=== PATIENT | male | born 1960 | race Caucasian/White ===

== ENCOUNTER → 2017-10-19 | Outpatient (CLI) | payer OTHER ==
[~2017-10-19] MED LIST: CPR500; GLC500; HYZ/10015; PROM25TA; TAZTIA; ZFRODT4 SL
[2017-10-19 09:35] LABS: BASO % 1.3 %; BASO ABS # 0.06 K/uL (0-0.2); EOS % 2.6 %; EOS ABS # 0.12 K/uL (0-0.5); HEMATOCRIT 43.3 % (42-52); HEMOGLOBIN 15.4 g/dL (14.0-18.0); IG# 0.04 K/uL (0.00-0.02); LYMPH % 38.3 %; LYMPH ABS # 1.78 K/uL (1.2-3.4); MEAN CELL VOLUME 80.9 fL (80-100); MEAN CORPUSCULAR HEMOGLOBIN 28.8 pg (25-34); MEAN CORPUSCULAR HGB CONC 35.6 g/dl (32-36); MEAN PLATELET VOLUME 9.4 fL (7.4-10.4); MONO ABS # 0.42 K/uL (0.11-0.59); NEUT % 47.9 %; NEUT ABS # 2.23 K/uL (1.4-6.5); PLATELET COUNT 190 K/uL (130-400); RED CELL DISTRIBUTION WIDTH CV 13.7 % (11.5-14.5); RED CELL DISTRIBUTION WIDTH SD 40.1 fL (36.4-46.3); WHITE BLOOD COUNT 4.65 K/uL (4.8-10.8)
[2017-10-19 09:56] LABS: ALBUMIN 4.2 gm/dl (3.4-5.0); ALT/SGPT 77 U/L (12-78); AST/SGOT 54 U/L (15-37); BLOOD UREA NITROGEN 14 mg/dl (7-18); CALCIUM 9.4 mg/dl (8.5-10.1); CARBON DIOXIDE 26 mmol/L (21-32); CREATININE 0.96 mg/dl (0.60-1.40); GLUCOSE 202 mg/dl (70-99); POTASSIUM 3.8 mmol/L (3.5-5.1); SODIUM 136 mmol/L (136-145)
[2017-10-19 10:07] LABS: ALKALINE PHOSPHATASE 63 U/L (45-117); CHOLESTEROL 180 mg/dl (0-200); LDL CHOLESTEROL CALCULATED 71 mg/dl; TOTAL PROTEIN 7.8 gm/dl (6.4-8.2)
[2017-10-19 10:31] LABS: HEMOGLOBIN A1C 8.1 % (4.5-5.6)
== END | disposition home or self-care (01) ==
LOC: C.LAB1850 07:19
PROVIDERS: ATTEND Internal Medicine Pulmonary Disease
DX: E11.9 Type 2 diabetes mellitus without complications (principal); E78.5 Hyperlipidemia, unspecified; N52.9 Male erectile dysfunction, unspecified; I10 Essential (primary) hypertension

== ENCOUNTER 2019-01-19 15:59 | Inpatient (IN) ==
[2019-01-19] MEDS ORDERED: MAGNESIUM HYDROXIDE SUSP 30 ML UDC PO PRN (16:13)
[2019-01-19] MEDS ORDERED: ACETAMINOPHEN 325 MG TAB PO PRN (16:13)
[2019-01-19] MEDS ORDERED: ONDANSETRON INJ 2 MG/ML 2 ML VIAL IV PRN (16:13)
--- NOTE | 2019-01-19 16:22 | History & Physical Report ---
Date of Service January 19, 2019 Assessment & Plan (1) Chest pain: Concerning for atypical angina Trops x2 at 0.043 -> 0.038, will trend given ongoing sx EKG noted for nonspecific T wave abn, monitor CXR on 01/18 neg for acute, will hold on repeat VSS and O2 sats WNL making PE less likely, will hold on imaging for this at this time Cards c/s pending Stress test in AM if trops continue to be stable (2) HTN (hypertension): continue home meds (3) Type 2 diabetes mellitus: continue home meds SSI PRN A1c 09/2018 8.1, repeat pending (4) Hyperlipidemia: continue home meds Lipids pending (5) DVT prophylaxis: SCDs (6) Pain in scapula: History of Present Illness Primary Care Provider: Ry Rodriguez MD 58 y/o M c/o chest pain. Pt was seen in the ED yesterday for chest pain and noted to have a trop of 0.043 and a nonspecific T wave abn noted on EKG. He was advised to stay for admission, however he declined. He had a repeat trop that was stable at 0.038 and repeat EKG that was the same as prior. He was d/c'd under the premise of close outpt f/u with PCP and a stress test. He was seen by his PCP's office today with ongoing chest pain. Belkys Olsen discussed the case with Dr. Wen who felt the pt's sx were c/w unstable angina and concerning. They attempted to get a stress test scheduled, however next available date was 02/15, so it was determined that pt should be a direct admit given ongoing chest pain. Pt has chest pain with brisk walking on his way to work. He walks up a slight incline. He states it will start about 5 minutes into the 10-15 minute walk. It will resolve with rest and he is able to resume his walking. He does take a few "gasping breaths" when this happens, but no nael SOB. This pain is substernal and does not radiate. This pattern started 5-6 days ago. Pt states that he has had less intense versions of this pain that would "come and go" quickly without requiring him to stop activity "on and off for years". He has never had any sort of cardiac work-up. This never happens at rest or with other activity at work. He also notes that about 3 days ago he started having pain to his R scapular area. 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 Pt denies fever, abd pain, n/v/c/d, LE pain or swelling. Allergies Allergy/AdvReac Type Severity Reaction Status Date / Time codeine Allergy Mild Itchiness Verified 01/18/19 15:49 Penicillins Allergy Unknown Unknown Verified 01/18/19 15:49 Home Medications Home Medications Medication Instructions Recorded Confirmed Type aspirin 81 mg PO QPM 12/24/18 01/18/19 History glipizide 10 mg PO BID 12/24/18 01/18/19 History insulin degludec [Tresiba 50 units SUBCUT QPM 12/24/18 01/18/19 History FlexTouch U-200] losartan-hydrochlorothiazide 1 tab PO QAM 12/24/18 01/18/19 History metformin 1,000 mg PO BID 12/24/18 01/18/19 History multivitamin 1 tab PO DAILY 12/24/18 01/18/19 History pravastatin 10 mg PO QPM 12/24/18 01/18/19 History verapamil 120 mg PO QPM 01/18/19 01/18/19 History Past Med/Surg History Medical History HTN (hypertension) Type 2 diabetes mellitus No pertinent family history Surgical History No pertinent past surgical history Family History Mother Stroke Father Stroke Other No pertinent family history Social History Preferred Language: Sri Lankan Communication Ability: Effective Visual Impairment: No Limitations Hearing Ability: Normal Feels Safe at Home: Yes Smoking Status: Never smoker Hx Alcohol Use: No Hx Substance Use: No Review of Systems Review of Systems: Pertinent positives and negatives reviewed in HPI--all others negative Physical Exam Constitutional: WD/WN, vitals as above Eyes: normal visual mccollum by confrontation and + anicteric sclerae Neck: normal visual inspection and trachea midline Respiratory: normal respiratory effort, lungs clear to auscultation Cardiovascular: Rate/Rhythm: regular rate and regular rhythm Gastrointestinal (Abdomen): Inspection/Auscultation: abdomen not distended Percussion/Palpation: abdomen soft; abdomen nontender Musculoskeletal: Head/Neck/Chest: normocephalic and head atraumatic negative for edema, peripheral pulses intact R scapula TTP Skin: no rashes, warm and dry Neurologic: awake; not confused Speech / Cognition: normal speech Psychiatric: A+Ox3, euthymic affect Results & Data Diagnostic Findings CXR: neg for acute on 01/18 ECG Additional Comments: nonspecific T wave abn seen prior Code Status & VTE Plan Code Status Full code, although pt states no prolonged mechanical life support, feeding tubes, etc. is present and agrees. VTE Prophylaxis Plan VTE Prophylaxis will be ordered: Yes (1) Chest pain Chest pain type: unspecified Qualified Code(s): R07.9 - Chest pain, unspecified
[2019-01-19] MEDS ORDERED: DEXTROSE 50% 50 ML SYRINGE IV PRN (16:40)
[2019-01-19] MEDS ORDERED: GLUCOSE 40% GEL 15 GM TUBE PO PRN (16:40)
[2019-01-19] MEDS ORDERED: GLUCOSE 10 TABS/TUBE PO PRN (16:40)
[2019-01-19] MEDS ORDERED: GLUCAGON FOR INJ 1 MG VIAL SQ PRN (16:40)
[2019-01-19] MEDS ORDERED: CARBOHYDRATES FOR HYPOGLYCEMIA PO PRN (16:40)
[2019-01-19 17:18] LABS: BUN Creatinine Ratio 14.8 (10-20); Calcium 9.8 mg/dl (8.5-10.1); Creatinine Clr Calc Pharmacy 93.1 ml/min; Est GFR (Non-African American) 75.1
[2019-01-19 17:35] LABS: Basophils # (auto) 0.04 K/uL (0-0.2); Basophils % (auto) 0.6 %; Eosinophils # (auto) 0.12 K/uL (0-0.5); Eosinophils % (auto) 1.7 %; Hematocrit (blood only) 44.7 % (42-52); Hemoglobin 16.1 g/dL (14.0-18.0); Immature Granulocytes # (auto) 0.05 K/uL (0.00-0.02); Immature Granulocytes % (auto) 0.7 %; Lymphocytes # (auto) 1.81 K/uL (1.2-3.4); Lymphocytes % (auto) 26.2 %; Mean Corpuscular Volume 81.4 fL (80-100); Mean Platelet Volume 9.9 fL (7.4-10.4); Monocytes # (auto) 0.46 K/uL (0.11-0.59); Monocytes % (auto) 6.6 %; Neutrophils # (auto) 4.44 K/uL (1.4-6.5); Neutrophils % (auto) 64.2 %; Platelet Count 260 K/uL (130-400); RDW Coefficient of Variation 13.6 % (11.5-14.5); RDW Standard Deviation 40.4 fL (36.4-46.3); Red Blood Count 5.49 M/uL (4.7-6.1); White Blood Count 6.92 K/uL (4.8-10.8)
[2019-01-19 17:36] LABS: Troponin I 0.019 ng/ml (0-0.045)
[2019-01-19 17:58] LABS: RBC Morphology Unremarkable
[2019-01-19 18:11] LABS: Potassium 4.2 mmol/L (3.5-5.1)
[2019-01-19 18:12] LABS: Magnesium 1.9 mg/dl (1.8-2.4)
--- NOTE | 2019-01-19 19:10 | Cardiology Consultation ---
Date of Consultation January 19, 2019 Assessment & Plan (1) Chest pain: The patient's symptoms are certainly concerning for angina. The exertional nature and the resolution with rest in the setting of his demographic and risk factors makes angina a likely diagnosis. There has been no objective finding of ischemia. Biomarkers have been normal and his electrocardiogram is nondiagnostic. It would seem reasonable to perform provocative testing such as exercise echocardiography. Whether this can be done tomorrow is unclear given some scheduling issues. One could argue that angiography is warranted given his risk factors and symptoms. However, I think it is important to find some objective indication of ischemia prior to recommending an invasive test with some risks. At this point would seem reasonable to continue on his aspirin and his outpatient antihypertensive regimen. In the past he appears to have had some intolerance to more potent statins and is currently on low-dose pravastatin. He has not had any myocardial infarction or see known to have reduced LV systolic function. Those be indications for use of beta-blockade. I think we can administer him a dose of Lovenox tonight over concerns of an unstable coronary process. (2) Sinus tachycardia: The etiology of the sinus tachycardia is unclear. He appears to be quite comfortable currently. I suppose this could suggest an element of reduced LV function although he appears to have clear lungs and no evidence of pulmonary edema on chest x-ray. He will obtain an echocardiogram tomorrow. History of Present Illness Reason for Consultation: Chest pain Requesting Physician: Boy Attending Physician: Chloe Brunson DO History of Present Illness The patient is a 58-year-old gentleman without a known history of cardiac disease who suffers from diabetes mellitus and hypertension. Over the past few days he has been experiencing episodes of exertional chest discomfort. He describes this as a heaviness or tightness in his chest this seems to occur primarily when he is walking briskly from his work to his car. This involves approximately 10 minute walk. He is accustomed to exercising during this time in attempting to walk briskly. In the past this is not produced any significant symptoms. However, over the past few days he has this chest tightness and some associated dyspnea. He generally stops and within 1 minutes the symptoms resolved. He states with some other forms of exertional have similar symptoms. He has not had any prolonged episodes. He has not had any episodes at rest. He has occasional other twinges of discomfort at times. These are fairly fleeting in nature and not associated with exertion. Additionally he also has some shooting pains in his back that appear to be positional in nature. In general he is an active individual who is not accustomed the symptoms associated with exertion. He states that occasionally he will as sending a hill or perform more moderate activity and have an element of dyspnea. This generally resolves as he continues the activity. In the past he has had what he feels is exertional asthma that felt similar. He has not report dizziness or lightheadedness. He has not been aware of any palpitations. He does not have orthopnea or paroxysmal nocturnal dyspnea. He has not suffered syncope. He has not noticed any swelling of lower extremities. He presented to the emergency room last evening with the symptoms and was advised to stay overnight for evaluation. However, he chose to go home. He presented to an outpatient clinic today and based on his symptoms and referral with 1 of our cardiologists he was advised to be admitted for additional testing. Currently he is feeling well without symptoms. Allergies Allergy/AdvReac Type Severity Reaction Status Date / Time codeine Allergy Mild Itchiness Verified 01/18/19 15:49 Penicillins Allergy Unknown Unknown Verified 01/18/19 15:49 Home Medications Home Medications Medication Instructions Recorded Confirmed Type aspirin 81 mg PO QPM 12/24/18 01/18/19 History glipizide 10 mg PO BID 12/24/18 01/18/19 History insulin degludec [Tresiba 50 units SUBCUT QPM 12/24/18 01/18/19 History FlexTouch U-200] losartan-hydrochlorothiazide 1 tab PO QAM 12/24/18 01/18/19 History metformin 1,000 mg PO BID 12/24/18 01/18/19 History multivitamin 1 tab PO DAILY 12/24/18 01/18/19 History pravastatin 10 mg PO QPM 12/24/18 01/18/19 History verapamil 120 mg PO QPM 01/18/19 01/18/19 History Patient History Medical History HTN (hypertension) Type 2 diabetes mellitus No pertinent family history Surgical History No pertinent past surgical history Family History Mother Stroke Father Stroke Other No pertinent family history Social History Preferred Language: Haitian Communication Ability: Effective Visual Impairment: No Limitations Hearing Ability: Normal Beliefs That Will Affect Care: None Current Living Situation: Spouse Other Information That Helps Us Care for You: No Feels Safe at Home: Yes Safety Concerns: Feels Safe At This Time Smoking Status: Never smoker Hx Alcohol Use: No Hx Substance Use: No Review of Systems Review of Systems: All systems reviewed & are unremarkable except as noted in HPI & below No recent constitutional symptoms such as fevers or chills. He does have some nasal congestion in the morning generally. He has not had difficulty with eating or swallowing. Appetite has been good. No notable lower extremity edema. Physical Exam Physical Exam: The patient is alert and oriented. Mood and affect appeared normal. He answered all questions appropriately. Obese HEENT: Pupils are equal and reactive to light and accommodation. Extraocular movements are intact. The sclerae are anicteric. Neuro: Cranial nerves intact Neck: Patient's neck is fat. He has palpable carotid pulses bilaterally without bruits on auscultation. There is no evidence of jugular venous distention. The thyroid is not enlarged. Lungs: Clear to auscultation bilaterally. He has good air movement without use of accessory muscles. No rales wheezes or rhonchi. Cardiac: Heart demonstrates a regular rhythm. He was slightly tachycardic. Normal S1 and S2. No murmurs on examination. Pulses: The patient has palpable radial pulses bilaterally that are equal in intensity Extremities: There was no evidence of hypoperfusion. There is no cyanosis or clubbing. There is no edema. Skin: I did not appreciate any rashes on examination today. Results & Data Vital Signs (Past 12 Hours) Vital Signs Temp Pulse Resp BP Pulse Ox 01/19/19 16:46 36.7 C 110 H 18 139/102 H 95 Laboratory Results Abnormal Lab Results 01/19/19 01/19/19 01/19/19 16:27 16:27 17:30 WBC 6.92 RBC 5.49 Hgb 16.1 Hct 44.7 MCV 81.4 MCH 29.3 MCHC 36.0 RDW Std Deviation 40.4 RDW Coeff of Nena 13.6 Plt Count 260 MPV 9.9 Immature Gran % (Auto) 0.7 Neut % (Auto) 64.2 Lymph % (Auto) 26.2 [place] % (Auto) 6.6 Eos % (Auto) 1.7 Baso % (Auto) 0.6 Immature Gran # (Auto) 0.05 H Neut # (Auto) 4.44 Lymph # (Auto) 1.81 [place] # (Auto) 0.46 Eos # (Auto) 0.12 Baso # (Auto) 0.04 RBC Morphology Unremarkable Sodium 138 Potassium 4.2 Chloride 107 Carbon Dioxide 20 L Anion Gap 11.0 BUN 16 Creatinine 1.07 Est Cr Clr Drug Dosing 93.1 Est GFR ( Amer) 87.0 Est GFR (Non-Af Amer) 75.1 BUN/Creatinine Ratio 14.8 Glucose 179 H Calcium 9.8 Phosphorus 4.0 Magnesium 1.9 Troponin I 0.019 TSH 2.670 Diagnostic Findings Chest x-ray obtained emergency room did not reveal any acute cardiopulmonary disease ECG Additional Comments: Normal sinus rhythm nonspecific ST and T-wave changes (1) Chest pain Chest pain type: unspecified Qualified Code(s): R07.9 - Chest pain, unspecified
[2019-01-19] MEDS ORDERED: ENOXAPARIN 1 MG/KG SQ ONE (19:17)
[2019-01-19 20:07] LABS: Partial Thromboplastin Ratio 0.9; Partial Thromboplastin Time 25.5 Seconds (21.0-31.0); Prothrombin Time 10.6 Seconds (9.0-12.0)
[2019-01-19] MEDS: INSULIN ASPART 100 UNITS/ML 3 ML PEN SC SCH (20:32)
[2019-01-19] MEDS ORDERED: PRAVASTATIN SOD 10 MG TAB PO SCH (21:00)
[2019-01-19] MEDS ORDERED: INSULIN GLARGINE SOLOSTAR 100 UNITS/ML 3 ML PEN SQ SCH (21:00)
[2019-01-19] MEDS ORDERED: ASPIRIN 81 MG ECTAB PO SCH (21:00)
[2019-01-19] MEDS ORDERED: VERAPAMIL HCL 120 MG TABCR PO SCH (21:00)
[2019-01-19] MEDS: ENOXAPARIN INJ 120 MG/0.8 ML SYR SQ SCH (21:34)
[2019-01-20 05:11] LABS: Troponin I 0.029 ng/ml (0-0.045)
[2019-01-20] MEDS ORDERED: glipiZIDE 5 MG TAB PO SCH (07:30)
[2019-01-20] MEDS ORDERED: METFORMIN HCL 500 MG TAB PO SCH (08:00)
[2019-01-20] MEDS: INSULIN ASPART 100 UNITS/ML 3 ML PEN SC SCH ×3 (08:18→12:43)
[2019-01-20 08:43] LABS: Estimated Average Glucose 154 mg/dl
[2019-01-20] MEDS: ENOXAPARIN INJ 120 MG/0.8 ML SYR SQ SCH (08:59)
[2019-01-20] MEDS ORDERED: LOSARTAN/HCTZ 50/12.5MG TAB PO SCH (09:00)
[2019-01-20] MEDS ORDERED: MULTIVITAMIN TAB PO SCH (09:00)
--- NOTE | 2019-01-20 17:34 | Cardiology Progress Note ---
Date of Service January 20, 2019 Assessment & Plan (1) HOWE (dyspnea on exertion): Likely this is an anginal equivalent given his stress echocardiogram findings. Recommended proceeding on to elective cardiac catheterization later this week. In the meantime, he can be discharged home and return to work, but should avoid any physical exertion. Recommended increasing his verapamil from 120 mg daily to 120 mg b.i.d. and giving him a prescription for p.r.n. sublingual nitroglycerin. If he has any exertional symptoms which do not promptly respond to rest or nitroglycerin, any symptoms of dyspnea or chest pain at rest, for any new unusual symptoms, he will report to the emergency department. Case discussed with Dr. Osborn. (2) Hyperlipidemia: (3) Type 2 diabetes mellitus: (4) HTN (hypertension): Increased verapamil. (5) Sinus tachycardia: Increase verapamil. Subjective Patient had uneventful night and ruled out for ongoing myocardial ischemia with stable ECG and negative troponins. He proceeded on to stress echocardiogram, exercising for just over 3 minutes on a Octavio protocol before developing dyspnea but no chest pain. Baseline ECG showed minor inferior ST depression which was exaggerated during exercise. He did have a mildly hypertensive blood pressure response. Resting echo showed low-normal systolic function with no regional wall motion a bnormalities. Post exercise, he had transient distal septal and apical septal hypokinesis which resolved in less than a minute. The patient was comfortable after his stress echo. No symptoms. He was interested in returning home. Review of Systems Cardiovascular: as per Subjective / HPI Physical Exam Physical Exam: No distress. Appears comfortable Skin: No unusual lesions or ecchymosis. HEENT: Unremarkable. Neck: Jugular venous pulse at the clavicle at 90, no carotid bruits. Lungs: Clear and equal breath sounds bilaterally. No wheezing or crackles. Cardiac: Regular rhythm with normal S1 and S2. No murmur or gallop. Abdomen: Benign. Extremities: Nontender without edema. Intact peripheral pulses. Neurologic: Normal affect, nonfocal Results & Data Vital Signs (Past 12 Hours) Vital Signs Temp Pulse Pulse Pulse Resp BP BP 01/20/19 16:40 36.7 C 84 110 H 18 135/90 124/82 01/20/19 15:24 36.7 C 110 H 18 135/90 01/20/19 11:16 36.5 C 104 H 18 127/94 01/20/19 08:00 97 H 01/20/19 07:35 36.5 C 93 H 16 145/95 H Pulse Ox 01/20/19 16:40 96 01/20/19 15:24 96 01/20/19 11:16 96 01/20/19 08:00 01/20/19 07:35 95
[2019-01-20] MEDS ORDERED: INSULIN GLARGINE SOLOSTAR 100 UNITS/ML 3 ML PEN SQ SCH (21:00)
--- NOTE | 2019-01-29 05:36 | Discharge Summary ---
Date of Service date of admission - January 19, 2019 date of discharge - January 20, 2019 Admission HPI Per Admitting Provider 58 y/o male with history of T2DM, HTN, and hyperlipidemia who presented c/o chest pain. Pt was seen in the ED yesterday for chest pain and noted to have a trop of 0.043 and a nonspecific T wave abnormality noted on EKG. He was advised to stay for admission; however, he declined. He had a repeat trop that was stable at 0.038 and repeat EKG that was the same as prior. He was d/c'd under the premise of close outpt f/u with PCP and a stress test. He was seen by his PCP's office today with ongoing chest pain. Belkys Olsen discussed the case with Dr. Wen who felt the pt's sx were c/w unstable angina and concerning. They attempted to get a stress test scheduled, however next available date was 02/15, so it was determined that pt should be a direct admit given ongoing chest pain. Pt has chest pain with brisk walking on his way to work. He walks up a slight incline. He states it will start about 5 minutes into the 10-15 minute walk. It will resolve with rest and he is able to resume his walking. He does take a few "gasping breaths" when this happens, but no nael SOB. This pain is substernal and does not radiate. This pattern started 5-6 days ago. Pt states that he has had less intense versions of this pain that would "come and go" quickly without requiring him to stop activity "on and off for years". He has never had any sort of cardiac work-up. This never happens at rest or with other activity at work. He also notes that about 3 days ago he started having pain to his R scapular area. 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 Pt denies fever, abd pain, nausea, emesis, diarrhea, LE pain or swelling. Principal Diagnosis chest pain with positive stress test Discharge Exam Constitutional well developed, well nourished and + obese; no acute distress ENMT external ear and nose normal, oropharynx normal Respiratory normal respiratory effort, lungs clear to auscultation Cardiovascular RRR, no murmur, no edema Heart Sounds: normal S1 and normal S2 Vessels: posterior tibial pulses present and dorsalis pedis pulses present; no JVD Chest (Breasts) Additional Comments: no reproducible chest wall pain Gastrointestinal (Abdomen) normal bowel sounds, soft, nontender, no hepatosplenomegaly Psychiatric A+Ox3, euthymic affect Discharge Data Allergies Allergy/AdvReac Type Severity Reaction Status Date / Time codeine Allergy Mild Itchiness Verified 01/25/19 04:21 Penicillins Allergy Unknown Unknown Verified 01/25/19 04:21 Consultations cardiology - John Caldera MD Procedures Performed exercise stress echocardiogram - * inducible wall motion abnormality - mid & distal septum became hypokinetic immediately post-exercise * patient with dyspnea during the study * normal LV function Hospital Course (1) Chest pain: The patient's symptoms were concerning for angina. However his troponins technically remained normal while hospitalized. Telemetry was normal while here. Chest x-ray was normal. His chest pain symptoms did not recur during the stay. He was seen in consult by cardiology who performed an exercise stress ech ocardiogram. This indeed showed inducible wall motion abnormalities in the mid & distal septal region. Specifically the septum became severely hypokinetic post-exercise. Due to the timing of his stay the patient would have had to wait 3+ days for a cardiac catheterization. Thus, after extensive counseling, he was allowed to discharge home on LIGHT DUTY/LIGHT ACTIVITIES only. No strenuous activities. He was given nitroglycerin to use on PRN basis. Cardiology planned to arrange an outpatient cardiac catheterization within 3-5 days. Additional recommendations - 1. INCREASE verapamil to 120mg BID. 2. INCREASE PRAVASTATIN to 20mg every day. 3. Again SL nitro on a PRN basis with very specific instructions that if it had to be used he should seek medical attention right away. 4. CONTINUE ASPIRIN. (2) HTN (hypertension): continue home meds. verapamil increased to 120mg BID as recommended by cardiology. (3) Type 2 diabetes mellitus: continue home meds. hemoglobin A1c was 7%. (4) Hyperlipidemia: Triglycerdies were nearly 400. LDL was 68. HDL was 36. Recommendations - 1. INCREASE pravastatin to 20mg daily. 2. CONSIDER PRESCRIPTION FISH OIL OR FIBRATE THERAPY. 3. Adopt Mediterranean diet. This was discussed in detail with patient & his . Total Time Total Time Spent Total Time Spent (In Minutes): 40 Total Time Includes: Examination of the Patient, Discharge Planning, Medication Reconciliation and Communication With Other Providers Discharge Plan Discharge Items Patient Disposition: Home - Self-Care Reason For Visit: chest pain Discharge Diagnosis: Chest pain -- high concern that it is from the heart. However, no evidence of heart attack over the last few days. Abnormal stress test -- in need of heart catheterization. Discharge Goals: Diagnostic testing and Therapeutic intervention Activity: As commented below Activity Comment: no strenuous activities; no yard work, environmental field team member, etc. Lifting: No more than 10 pounds Bathing: No limitations Sexual Activity: Wait until after follow-up appointment Exercise/Sports: None and Wait until after follow-up appointment Driving/Machine Use: No limitations Driving/Machine Use Comment: ok to drive, but do not operate heavy machinery Non-emergency contact: Primary Care Provider Call non-emergency contact if: you have any medication questions, your symptoms worsen, your pain is not controlled and your pain is worsening Follow-up/Referrals: John Caldera MD [Physician] - (please call Dr. Caldera's office THIS TUESDAY to coordinate date/time of heart catheterization.) Ry Rodriguez MD [Primary Care Provider] - (please see Dr Rodriguez within 1 week) Diet: Carb Consistent or DM2 and Heart Healthy Addtl Provider Instructions: From Jose Osborn - hospitalist- You were admitted due to episodes of chest pain/discomfort. Your blood work for the heart was negative for heart attack. Chest x-ray of the lungs was normal. Lipid panel (cholesterol) showed high triglycerides and low HDL (HDL is "good cholesterol" -- we like to see this high). Your telemetry heart monitoring was normal. Stress test was completed and was abnormal. It appears that a portion of the heart muscle may not be getting enough oxygen and nutrients. This suggests possible blocked coronary arteries. You will need a heart catheterization as soon as possible to determine if there are blocked arteries and, if so, how badly blocked. Recommendations - 1. INCREASE your pravastatin to 20mg daily. 2. INCREASE your verapamil to 120mg twice a day. 3. Eat a diet rich in fish, olive oil, etc ("mediterranean diet"). This is good for your overall health, weight reduction, and for your triglycerides / HDL. 4. Keep the bottle of nitroglycerin tablets with you at all times. If you experience chest pain or shortness of breath please take a nitroglycerin. If your symptoms require you to take more than 1 tablet please seek medical attention right away. 5. Light activity until your heart catheterization. NO HEAVY EXERTIONAL ACTIVITIES, SEXUAL INTERCOURSE, ETC. Light walks are fine. Follow-up -- call the [facility] office first thing Tuesday to schedule your heart catheterization. Return to [facility] if -- * you have recurrent chest pain that worsens, does not respond/resolve with nitroglycerin, etc. * you have worsening shortness of breath * you have jaw pain, arm pain, neck pain, nausea, vomiting, or sweatiness * any other concerns Prescriptions: New nitroglycerin 0.4 mg tablet, sublingual 0.4 mg sublingual Q5M PRN (Reason: chest pain) Qty: 1 RF: 0 Continued glipizide 5 mg tablet 10 mg PO BID RF: 0 multivitamin Tablet 1 tab PO DAILY RF: 0 aspirin 81 mg Tablet,Delayed Release (Dr/Ec) 81 mg PO QPM RF: 0 metformin 1,000 mg tablet 1,000 mg PO BID RF: 0 Tresiba FlexTouch U-200 200 unit/mL (3 mL) insulin pen 50 units subcut QPM RF: 0 Changed verapamil 120 mg capsule,ext rel. pellets 24 hr 120 mg PO BID Qty: 60 RF: 2 Discontinued pravastatin 10 mg tablet 10 mg PO QPM RF: 0 No Action atorvastatin 40 mg Tablet 40 mg PO QAM 30 Days Qty: 30 RF: 3 losartan-hydrochlorothiazide 50-12.5 mg Tablet 1 tab PO QAM 30 Days Qty: 30 RF: 2 metoprolol tartrate 25 mg Tablet 25 mg PO QAM 30 Days Qty: 30 RF: 3 Brilinta 90 mg Tablet 90 mg PO BID 30 Days Qty: 60 RF: 3 Stand-Alone Forms: My [facility] Discharge Orders: Discharge Order (Routine); Ordered 01/20/19 Ordered By: Jose Osborn Admission Data Admit Date/Time: 01/19/19 16:03 Attending Provider: Jose Osborn Admit Provider: Chloe Brunson Primary Care Provider: Ry Rodriguez Other Providers: Manan Noriega Service: Telemetry Other Interventions: Discharge Summary Assessment (RN) Last Done: 01/20/19 16:40 Pending Studies at Discharge: No DC Date/Time DO NOT enter until pt leaves facility: 01/20/19 17:14
== END 2019-01-20 17:14 | disposition home or self-care (01) | DRG 313 ==
LOC: 2E 16:03 → SUATTDRO 16:03
DX: Z88.0 Allergy status to penicillin; M25.511 Pain in right shoulder; Z88.5 Allergy status to narcotic agent; R94.39 Abnormal result of other cardiovascular function study; Z79.899 Other long term (current) drug therapy; Z79.82 Long term (current) use of aspirin; R00.0 Tachycardia, unspecified; R07.9 Chest pain, unspecified; E78.5 Hyperlipidemia, unspecified; I10 Essential (primary) hypertension; R06.00 Dyspnea, unspecified; R94.31 Abnormal electrocardiogram [ECG] [EKG]; E11.9 Type 2 diabetes mellitus without complications

== ENCOUNTER 2019-01-25 01:28 | Inpatient (IN) ==
[2019-01-25] MEDS ORDERED: NITROGLYCERIN 2% OINTMENT 30GM TUBE EXT ONE (01:36)
[2019-01-25] MEDS ORDERED: SODIUM CHLORIDE 0.9% 1000ML 1,000 ML IV SCH ×2 (01:45→05:17)
[2019-01-25 01:53] LABS: Basophils # (auto) 0.05 K/uL (0-0.2); Basophils % (auto) 0.8 %; Eosinophils # (auto) 0.22 K/uL (0-0.5); Eosinophils % (auto) 3.7 %; Hematocrit (blood only) 41.2 % (42-52); Hemoglobin 14.9 g/dL (14.0-18.0); Immature Granulocytes # (auto) 0.04 K/uL (0.00-0.02); Immature Granulocytes % (auto) 0.7 %; Lymphocytes # (auto) 2.13 K/uL (1.2-3.4); Mean Corpuscular Hgb Conc 36.2 g/dL (32-36); Mean Corpuscular Volume 81.9 fL (80-100); Mean Platelet Volume 9.5 fL (7.4-10.4); Monocytes # (auto) 0.38 K/uL (0.11-0.59); Monocytes % (auto) 6.4 %; Neutrophils % (auto) 52.4 %; Platelet Count 179 K/uL (130-400); RDW Coefficient of Variation 13.6 % (11.5-14.5); RDW Standard Deviation 40.5 fL (36.4-46.3); Red Blood Count 5.03 M/uL (4.7-6.1); White Blood Count 5.92 K/uL (4.8-10.8)
[2019-01-25] MEDS ORDERED: NITROGLYCERIN SL 0.4 MG/TAB TAB ONE (02:46)
[2019-01-25] MEDS ORDERED: MAGNESIUM SULFATE 1GM / D5W BAG IV ONE (02:50)
[2019-01-25] MEDS ORDERED: POTASSIUM CHLORIDE 10 MEQ TABCR PO ONE (02:51)
[2019-01-25] MEDS ORDERED: METOPROLOL TARTRATE 50 MG TAB ONE (02:52)
[2019-01-25] MEDS ORDERED: LORazepam 0.5 MG TAB ONE (03:00)
[2019-01-25] MEDS ORDERED: HEPARIN 25000 UNIT/500 ML D5W IV ONE (03:04)
[2019-01-25] MEDS ORDERED: HEPARIN SOD 5,000 UNIT/0.5 ML VIAL ONE (03:04)
[2019-01-25 03:44] LABS: Albumin Level 3.8 gm/dl (3.4-5.0); Calcium 8.7 mg/dl (8.5-10.1); Creatinine Clr Calc Pharmacy 92.5 ml/min; Est GFR (African American) 84.1; Est GFR (Non-African American) 72.6; Magnesium 1.8 mg/dl (1.8-2.4); Potassium 3.8 mmol/L (3.5-5.1)
[2019-01-25 03:51] LABS: Albumin Globulin Ratio 1.1 (0.9-2); Bilirubin,Total 0.8 mg/dl (0.2-1); Creatine Kinase MB 1.6 ng/ml (0.5-3.6); Globulin 3.4 gm/dl (2.5-4.0); Partial Thromboplastin Ratio 0.9; Partial Thromboplastin Time 24.5 Seconds (21.0-31.0); Prothrombin Time 10.6 Seconds (9.0-12.0); Total Protein 7.2 gm/dl (6.4-8.2); Troponin I 0.06 ng/ml (0-0.045)
[2019-01-25] MEDS ORDERED: Heparin Adult STANDARD Wt-Based Dextrose 5% 25,000 units/500 mL IV SCH (04:00)
[2019-01-25 04:09] LABS: T4 Free Thyroxine 1.02 ng/dl (0.8-1.6)
--- NOTE | 2019-01-25 04:39 | History & Physical Report ---
Date of Service January 25, 2019 Assessment & Plan (1) Chest pain: 58-year-old male with past medical history hypertension, hyperlipidemia, type 2 diabetes presents with acute chest pain. Patient was admitted last week for unstable angina and was scheduled for heart catheterization this Tuesday. Admission occurred during [facility] downtime, written orders provided. Unstable angina EKG revealed ST depressions in lateral leads with chest pain, initial troponin was 0.06, stable vital signs At home, the pain was relieved with sublingual nitro, but the patient had repeat chest pain in the ED Prior to transfer to the floor, heparin drip with bolus, aspirin, Nitropaste, sublingual nitro, metoprolol titrate 25 mg and oxygen were given Admit to telemetry, nitro for chest pain, EKG with chest pain, cardiology consult Hypertension Continue losartan/HCTZ Continue verapamil Starting metoprolol titrate 25 mg p.o. daily Hyperlipidemia Starting Lipitor 40 mg. Previously on pravastatin. Type 2 diabetes Hold glipizide, hold metformin Starting sliding scale insulin DVT prophylaxis Heparin CODE STATUS Full (2) HTN (hypertension): (3) HOWE (dyspnea on exertion): (4) Sinus tachycardia: (5) Hyperlipidemia: (6) Type 2 diabetes mellitus: History of Present Illness Primary Care Provider: Ry Rodriguez MD 58-year-old male with a history of diabetes, hypertension, hyperlipidemia presents after waking up in the middle the night with acute chest pain. He described the chest pain is substernal tightness with associated shortness of breath. The patient took sublingual nitro which relieved the pain, but shortly after he began to have the pain again so he decided to come into the emergency room. Patient was admitted last week for unstable angina and had received a stress echo with a plan for a heart catheterization this Tuesday. Allergies Allergy/AdvReac Type Severity Reaction Status Date / Time codeine Allergy Mild Itchiness Verified 01/25/19 04:21 Penicillins Allergy Unknown Unknown Verified 01/25/19 04:21 Home Medications Home Medications Medication Instructions Recorded Confirmed Type Tresiba FlexTouch U-200 50 units SUBCUT QPM 12/24/18 01/25/19 History aspirin 81 mg PO QPM 12/24/18 01/25/19 History glipizide 10 mg PO BID 12/24/18 01/25/19 History metformin 1,000 mg PO BID 12/24/18 01/25/19 History multivitamin 1 tab PO DAILY 12/24/18 01/25/19 History nitroglycerin 0.4 mg SUBLINGUAL Q5M PRN #1 btl 01/20/19 01/25/19 Rx verapamil 120 mg PO BID #60 cap 01/20/19 01/25/19 Rx atorvastatin 40 mg PO QAM 30 Days #30 tab 01/26/19 Rx losartan-hydrochlorothiazide 1 tab PO QAM 30 Days #30 tab 01/26/19 Rx metoprolol tartrate 25 mg PO QAM 30 Days #30 tab 01/26/19 Rx ticagrelor [Brilinta] 90 mg PO BID 30 Days #60 tab 01/26/19 Rx Past Med/Surg History Medical History HTN (hypertension) Type 2 diabetes mellitus No pertinent family history Surgical History No pertinent past surgical history Social History Preferred Language: Divehi Communication Ability: Effective Visual Impairment: No Limitations Hearing Ability: Normal Beliefs That Will Affect Care: None marital status: Unknown Current Living Situation: Spouse Other Information That Helps Us Care for You: No Feels Safe at Home: Yes Safety Concerns: Feels Safe At This Time Smoking Status: Never smoker Hx Alcohol Use: No Hx Substance Use: No Review of Systems Review of Systems: All systems reviewed & are unremarkable except as noted in HPI & below Physical Exam Constitutional: WD/WN, vitals as above Eyes: PERRL, conjunctivae normal, anicteric sclerae ENMT: external ear and nose normal, oropharynx normal Neck: trachea midline, no thyromegaly Respiratory: normal respiratory effort, lungs clear to auscultation Cardiovascular: RRR, no murmur, no edema Gastrointestinal (Abdomen): normal bowel sounds, soft, nontender, no hepatosplenomegaly Musculoskeletal: no cyanosis or clubbing, extremities motor strength 5/5 Skin: no rashes, warm and dry Neurologic: PERRL, EOMI, accommodation nl, no face palsy, no dysarthria Psychiatric: A+Ox3, euthymic affect Results & Data Vital Signs (Past 12 Hours) Vital Signs Temp Pulse Pulse Resp BP BP Pulse Ox 01/25/19 01:41 95 H 18 152/91 H 97 01/25/19 01:30 36.9 C 102 H 16 166/92 H 94 Code Status & VTE Plan Code Status Full code VTE Prophylaxis Plan VTE Prophylaxis will be ordered: Yes Supervising Physician Co-Signing Physician Notes Attending addendum: I have physically seen this patient, have supervised the medical residents activities, and agree with the H&P unless as otherwise noted. Assessment and Plan: Unstable angina/hypertension/abnormal EKG- The patient will be admitted to telemetry for serial cardiac enzymes, serial EKG's, cardiac rhythm monitoring and a 2-D echocardiogram with Dopplers. Heparin drip, aspirin, Nitropaste and metoprolol tartrate as noted. Continue losartan/HCTZ. Hyperlipidemia- Change to high-dose statin protocol. Change pravastatin to Lipitor 40 mg daily. Diabetes mellitus- Hold glipizide and metformin. Placed on Accu-Cheks before meals and at bedtime with NovoLog coverage per scale. Remaining orders and notations as noted. Resident Activity Tracking Resident Involvement: Resident Care Provided Care Provided: Adult Hospital Medicine (1) Chest pain Chest pain type: unspecified Qualified Code(s): R07.9 - Chest pain, unspec ified
[2019-01-25] MEDS ORDERED: NITROGLYCERIN SL 0.4 MG/TAB TAB SL PRN ×2 (05:17)
--- NOTE | 2019-01-25 05:41 | Emergency Department Note ---
History of Present Illness General Chief complaint: Chest Pain Stated complaint: CHEST PAIN Time Seen by Provider: 01/25/19 01:34 History of Present Illness Maximum Pain Intensity: 3 This is a 58-year-old male presenting to the emergency department for chest pain that began less than 1 hour prior to arrival. The patient was recently evaluated at this facility for chest pain roughly 1 week ago, and was found to have anginal symptoms. The patient is scheduled for outpatient cardiac ca theterization tomorrow, however tonight he began having chest pain while at rest in his bed. He did take 2 nitroglycerin which did improve his symptoms. He does take aspirin, and has taken 324 mg. The patient does not have lightheadedness or dizziness. His chest pain is central and heavy. It does not radiate. The patient rates his current discomfort a 2/10. He does have significant risk factors of dyslipidemia and diabetes. The patient was seen during a [facility] downtime. Additional information may be scanned into the EMR. Home Medications Home Medications Medication Instructions Recorded Confirmed Type Tresiba FlexTouch U-200 50 units SUBCUT QPM 12/24/18 01/25/19 History aspirin 81 mg PO QPM 12/24/18 01/25/19 History glipizide 10 mg PO BID 12/24/18 01/25/19 History losartan-hydrochlorothiazide 1 tab PO QAM 12/24/18 01/25/19 History metformin 1,000 mg PO BID 12/24/18 01/25/19 History multivitamin 1 tab PO DAILY 12/24/18 01/25/19 History nitroglycerin 0.4 mg SUBLINGUAL Q5M PRN #1 btl 01/20/19 01/25/19 Rx pravastatin 20 mg PO DAILY #30 tab 01/20/19 01/25/19 Rx verapamil 120 mg PO BID #60 cap 01/20/19 01/25/19 Rx Allergies Allergy/AdvReac Type Severity Reaction Status Date / Time codeine Allergy Mild Itchiness Verified 01/25/19 04:21 Penicillins Allergy Unknown Unknown Verified 01/25/19 04:21 Past Med/Surg History Medical History HTN (hypertension) Type 2 diabetes mellitus No pertinent family history Surgical History No pertinent past surgical history Social History Preferred Language: Polish Communication Ability: Effective Visual Impairment: No Limitations Hearing Ability: Normal Beliefs That Will Affect Care: None Current Living Situation: Spouse Other Information That Helps Us Care for You: No Feels Safe at Home: Yes Safety Concerns: Feels Safe At This Time Smoking Status: Never smoker Hx Alcohol Use: No Hx Substance Use: No Review of Systems A total of 10 systems reviewed and were otherwise negative Physical Exam Vital Signs Vital Signs - 24 hr 01/25/19 01:30 01/25/19 01:41 01/25/19 04:20 Temperature 36.9 C 36.6 C Temperature Source Oral Oral Sepsis Recent Fever Within 48 Hours No Sepsis New/Unexplained Change in Mental Status No Sepsis Action Taken by Nursing No Action Required Pulse Rate 102 H Pulse Rate [Right Finger] 95 H 101 H Respiratory Rate 16 18 18 Respiratory Effort / Characteristics Non-Labored Spontaneous Respiratory Depth Normal Normal Respiratory Pattern Regular Blood Pressure 166/92 H Blood Pressure [Right Arm] 152/91 H 129/76 Blood Pressure Mean 116 Blood Pressure Mean [Right Arm] 111 93 Blood Pressure Position [Right Arm] Lying Pulse Oximetry 94 97 92 Oxygen Delivery Method Room Air Room Air Room Air VITALS: Vitals are noted on the nurse's note and reviewed by myself. Vital signs stable. GENERAL: Well-developed, well-nourished, white male who appears mildly uncomfortable but overall cooperative. HEAD: Normocephalic atraumatic. EARS: External ear normal. External auditory canals clear, tympanic membranes pearly tapia without erythema or effusion bilaterally. EYES: Pupils equal round and reactive to light and accommodation. Conjunctivae without injection, sclerae without icterus. Extraocular movements intact. NOSE: Patent, turbinates without inflammation or discharge. MOUTH: Mucous membranes moist. Tonsils are not enlarged. Pharynx without erythema, blood, or exudate. Uvula midline. Airway patent. NECK: Supple without nuchal rigidity. No lymphadenopathy. No thyromegaly. Cervical spine is nontender. HEART: Regular rate and rhythm without murmurs gallops or rubs. LUNGS: Clear to auscultation bilaterally without wheezes, rales or rhonchi. No retractions or accessory muscle use. ABDOMEN: Positive normal bowel sounds x 4. Soft, nontender, without masses or organomegaly. No guarding or rebound tenderness. MUSCULOSKELETAL: No muscle atrophy, erythema, or edema noted. Full range of motion in all extremities. NEURO: Patient was alert and oriented to person place and time. CN II through XII grossly intact. SKIN: The skin was without rashes, erythema, edema, or bruising. Capillary refill less than 2 seconds. Course Administered Medications Aspirin (Ecotrin Ectab) 81 mg PO QPM [facility] Stop: 02/24/19 20:59 Last Admin: 01/25/19 22:10 Dose: 81 mg Documented by: [id number] Atorvastatin Calcium (Lipitor) 40 mg PO QAM [facility] Stop: 02/24/19 08:59 Last Admin: 01/25/19 09:01 Dose: 40 mg Documented by: [id number] HCTZ/Losartan Potassium (Hyzaar 50/12.5mg) 1 tab PO QAM [facility] Stop: 02/24/19 08:59 Last Admin: 01/25/19 09:01 Dose: 1 tab Documented by: [id number] Insulin Aspart (Novolog Flexpen) 0 units SC ACHS [facility] Stop: 02/24/19 07:29 Last Admin: 01/25/19 22:10 Dose: 1 units Documented by: [id number] Cosigned by: [id number] Admin: 01/25/19 17:15 Dose: 3 units Documented by: [id number] Cosigned by: [id number] Admin: 01/25/19 14:04 Dose: Not Given Documented by: [id number] Cosigned by: [id number] Admin: 01/25/19 09:02 Dose: 1 units Documented by: [id number] Cosigned by: [id number] Insulin Glargine (Lantus Solostar Pen) 50 units SQ QPM [facility]; Protocol Stop: 02/24/19 20:59 Last Admin: 01/25/19 22:11 Dose: 50 units Documented by: [id number] Cosigned by: [id number] Ticagrelor (Brilinta) 90 mg PO BID [facility] Stop: 02/24/19 20:59 Last Admin: 01/25/19 22:10 Dose: 90 mg Documented by: [id number] Verapamil HCl (Calan Sr) 120 mg PO BID [facility] Stop: 02/24/19 08:59 Last Admin: 01/25/19 22:10 Dose: 120 mg Documented by: [id number] Admin: 01/25/19 09:01 Dose: 120 mg Documented by: [id number] Discontinued Medications Fentanyl Citrate (Fentanyl Citrate) Confirm Administered Dose 100 mcg .ROUTE .STK-MED ONE Stop: 01/25/19 10:21 Last Increment: 01/25/19 13:00 Dose: 50 mcg Documented by: [id number] Heparin Sodium (Porcine) (Heparin Sodium (Porcine)) Confirm Administered Dose 5,000 units .ROUTE .STK-MED ONE Stop: 01/25/19 03:05 Last Admin: 01/25/19 05:28 Dose: Not Given Documented by: [id number] Heparin Sodium (Porcine) (Heparin Iv Bolus (Room Service Associate Use Only)) Confirm Administered Dose 10,000 units .ROUTE .STK-MED ONE Stop: 01/25/19 10:21 Last Admin: 01/25/19 13:00 Dose: 10,000 units Documented by: [id number] Heparin Sodium (Porcine) (Heparin Iv Bolus (Room Service Associate Use Only)) Confirm Administered Dose 10,000 units .ROUTE .STK-MED ONE Stop: 01/25/19 13:02 Last Admin: 01/25/19 13:03 Dose: 6,000 units Documented by: [id number] Heparin Sodium/Dextrose (Heparin Sodium/Dextrose) Confirm Administered Dose 25,000 units IV .STK-MED ONE Stop: 01/25/19 03:05 Last Admin: 01/25/19 05:29 Dose: Not Given Documented by: [id number] Heparin Sodium/Sodium Chloride (Heparin/Nss 1000 Unit/500ml Flush Bag) Confirm Administered Dose 3,000 units IV .STK-MED ONE Stop: 01/25/19 10:22 Last Admin: 01/25/19 10:51 Dose: 3,000 units Documented by: [id number] Sodium Chloride (Nss 1000ml) 1,000 mls @ 999 mls/hr IV .Q1H1M [facility] Stop: 01/25/19 02:45 Last Infusion: 01/25/19 05:32 Dose: 0 mls/hr Documented by: [id number] Admin: 01/25/19 01:45 Dose: 999 mls/hr Documented by: [id number] Heparin Sodium/Dextrose (Heparin Sodium/Dextrose) 25,000 units in 500 mls @ 33 mls/hr IV .[id number] LONNY; Protocol Stop: 02/24/19 03:59 Last Titration: 01/25/19 13:59 Dose: 0 units/hr, 0 mls/hr Documented by: [id number] Cosigned by: [id number] Titration: 01/25/19 07:06 Dose: 1,650 units/hr, 33 mls/hr Documented by: [id number] Cosigned by: [id number] Admin: 01/25/19 06:08 Dose: 1,650 units/hr, 33 mls/hr Documented by: [id number] Cosigned by: [id number] Sodium Chloride (Nss 1000ml) 1,000 mls @ 100 mls/hr IV .Q10H LONNY Stop: 01/25/19 15:16 Last Infusion: 01/25/19 15:50 Dose: 0 mls/hr Documented by: [id number] Admin: 01/25/19 05:50 Dose: 100 mls/hr Documented by: [id number] Lorazepam (Ativan) 0.5 mg in 1 mls @ 1 mls/min IV NOW STA Stop: 01/25/19 22:21 Last Admin: 01/25/19 22:45 Dose: 1 mls/min Documented by: [id number] Lorazepam (Ativan) Confirm Administered Dose 0.5 mg .ROUTE .STK-MED ONE Stop: 01/25/19 03:01 Last Admin: 01/25/19 05:28 Dose: Not Given Documented by: [id number] Magnesium Sulfate/Dextrose (Magnesium Sulfate / D5w) Confirm Administered Dose 1 gm IV .STK-MED ONE Stop: 01/25/19 02:51 Last Admin: 01/25/19 05:27 Dose: Not Given Documented by: [id number] Metoprolol Tartrate (Lopressor) Confirm Administered Dose 50 mg .ROUTE .STK-MED ONE Stop: 01/25/19 02:53 Last Admin: 01/25/19 05:27 Dose: Not Given Documented by: [id number] Midazolam HCl (Versed) Confirm Administered Dose 2 mg .ROUTE .STK-MED ONE Stop: 01/25/19 10:21 Last Admin: 01/25/19 13:00 Dose: 2 mg Documented by: [id number] Nicardipine HCl (Cardene) Confirm Administered Dose 25 mg .ROUTE .STK-MED ONE Stop: 01/25/19 10:22 Last Admin: 01/25/19 10:51 Dose: 25 mg Documented by: [id number] Nitroglycerin (Nitro-Bid 2%) 1 inch EXT NOW ONE Stop: 01/25/19 01:37 Last Admin: 01/25/19 01:47 Dose: 1 inch Documented by: [id number] Nitroglycerin (Nitrostat) Confirm Administered Dose 0.4 mg .ROUTE .STK-MED ONE Stop: 01/25/19 02:47 Last Admin: 01/25/19 05:27 Dose: Not Given Documented by: [id number] Nitroglycerin/Dextrose (Nitroglycerin/D5w 100 Mcg/Ml 20ml Syringe) Confirm Administered Dose 2,000 mcg .ROUTE .STK-MED ONE Stop: 01/25/19 10:22 Last Admin: 01/25/19 10:51 Dose: 2,000 mcg Documented by: [id number] Potassium Chloride (Klor-Con M10) Confirm Administered Dose 40 meq PO .STK-MED ONE Stop: 01/25/19 02:52 Last Admin: 01/25/19 05:27 Dose: Not Given Documented by: [id number] Ticagrelor (Brilinta) Confirm Administered Dose 180 mg PO .STDestinationRX-MED ONE Stop: 01/25/19 12:59 Last Admin: 01/25/19 13:00 Dose: 180 mg Documented by: [id number] Medical Decision Making Differential Diagnosis Differential diagnosis includes, but is not limited to: Myocardial infarction, dysrhythmia, pericarditis, pneumothorax, aortic aneurysm/dissection, DVT/PE, anxiety, GERD, PUD, electrolyte imbalance, thyroid disorder, pneumonia, bronchitis, pancreatitis, and others Laboratory Data Result diagrams: 01/25/19 01:44 01/25/19 01:44 Lab Results 01/25/19 01/25/19 01/25/19 Range/Units 01:44 01:44 01:44 WBC 5.92 (4.8-10.8) K/uL RBC 5.03 (4.7-6.1) M/uL Hgb 14.9 (14.0-18.0) g/dL Hct 41.2 L (42-52) % MCV 81.9 (80-100) fL MCH 29.6 (25-34) pg MCHC 36.2 H (32-36) g/dL RDW Std Deviation 40.5 (36.4-46.3) fL RDW Coeff of Nena 13.6 (11.5-14.5) % Plt Count 179 (130-400) K/uL MPV 9.5 (7.4-10.4) fL Immature Gran % (Auto) 0.7 % Neut % (Auto) 52.4 % Lymph % (Auto) 36.0 % Throckmorton % (Auto) 6.4 % Eos % (Auto) 3.7 % Baso % (Auto) 0.8 % Immature Gran # (Auto) 0.04 H (0.00-0.02) K/uL Neut # (Auto) 3.10 (1.4-6.5) K/uL Lymph # (Auto) 2.13 (1.2-3.4) K/uL Throckmorton # (Auto) 0.38 (0.11-0.59) K/uL Eos # (Auto) 0.22 (0-0.5) K/uL Baso # (Auto) 0.05 (0-0.2) K/uL PT 10.6 (9.0-12.0) Seconds INR 1.0 (0.9-1.1) APTT 24.5 (21.0-31.0) Seconds PTT Ratio 0.9 Sodium 140 (136-145) mmol/L Potassium 3.8 (3.5-5.1) mmol/L Chloride 108 H (98-107) mmol/L Carbon Dioxide 22 (21-32) mmol/L Anion Gap 10.0 (3-11) BUN 15 (7-18) mg/dl Creatinine 1.10 (0.6-1.4) mg/dl Est Cr Clr Drug Dosing 92.5 ml/min Est GFR ( Amer) 84.1 Est GFR (Non-Af Amer) 72.6 BUN/Creatinine Ratio 14.0 (10-20) Glucose 210 H (70-99) mg/dl Calcium 8.7 (8.5-10.1) mg/dl Magnesium 1.8 (1.8-2.4) mg/dl Total Bilirubin 0.8 (0.2-1) mg/dl AST 35 (15-37) U/L ALT 61 (12-78) U/L Alkaline Phosphatase 68 (45-117) U/L Total Creatine Kinase 121 (39-308) U/L CK-MB (CK-2) 1.6 (0.5-3.6) ng/ml CK/CKMB % Calc 1.3 (0-3.0) Troponin I 0.060 H* (0-0.045) ng/ml Total Protein 7.2 (6.4-8.2) gm/dl Albumin 3.8 (3.4-5.0) gm/dl Globulin 3.4 (2.5-4.0) gm/dl Albumin/Globulin Ratio 1.1 (0.9-2) Lipase 1312 H (73-393) U/L TSH 5.220 H (0.300-4.500) uIu/ml Free T4 1.02 (0.8-1.6) ng/dl Imaging Data Radiologist's Impression: XR chest 1V portable CLINICAL HISTORY: Chest pain. COMPARISON STUDY: Chest radiograph January 18, 2019. FINDINGS: Lung volumes are normal. There is no pneumothorax or pleural effusion. No consolidation is present. Mild interstitial thickening has developed. Cardiomediastinal silhouette is stable. IMPRESSION: Interval development of subtle interstitial prominence which may reflect pulmonary vascular congestion. An infectious process could appear similar although is considered less likely. MDM Narrative Physical exam and history were performed. Nursing notes, EMR, and Medication List were personally reviewed. Patient appears to have central chest pain that has been relieved with nitroglycerin. The patient was here in the hospital earlier this week, and has a highly concerning history of unstable angina. Initial EKG was performed during a [facility] downtime, and was concerning as the patient had ST depression in the anterior leads as well as T wave inversion in the inferior leads. IV access was established and labs were obtained. The patient was placed on the athletic monitor. Nitropaste was applied. The case was discussed with my attending physician, Dr. Murphy, who remained involved in care and decision- making. The patient blood work is as above and was reviewed. He does not have a significantly elevated white blood cell count, gross anemia, or significant electrolyte imbalance. His troponin is slightly elevated at 0.060. The patient had additional EKG changes while here in the department, and appeared to have worsening depression. The case was discussed with the on-call hospitalist, Dr. Stephenson, who remained closely involved in patient care. Overall the patient's symptoms are concerning for unstable angina/NSTEMI. Please see Dr. Stephenson's dictation for further patient course and disposition. The chart was completed utilizing [employer] Voice Recognition Software. Grammatical errors, random word insertions, pronoun errors, and incomplete sentences are an occasional consequence of this system due to software limitations, ambient noise, and hardware issues. Any formal questions or concerns about the content, text, or information contained within the body of this dictation should be directly addressed to the provider for clarification. . Impression & Plan Unstable angina Discharge Plan Visit Data *Final* Discharge Date/Time: 01/25/19 04:45 Chief Complaint: Chest Pain Stated Complaint: CHEST PAIN ED Provider: Chevy Murphy ED Midlevel Provider: Herbert Jones Discharge Problem: Unstable angina Patient Disposition: Admitted As Inpatient
[2019-01-25] MEDS ORDERED: GLUCAGON FOR INJ 1 MG VIAL SQ PRN (05:45)
[2019-01-25] MEDS ORDERED: DEXTROSE 50% 50 ML SYRINGE IV PRN (05:45)
[2019-01-25] MEDS ORDERED: CARBOHYDRATES FOR HYPOGLYCEMIA PO PRN (05:45)
[2019-01-25] MEDS ORDERED: GLUCOSE 10 TABS/TUBE PO PRN (05:45)
[2019-01-25] MEDS ORDERED: GLUCOSE 40% GEL 15 GM TUBE PO PRN (05:45)
[2019-01-25 06:33] LABS: Appearance Urine Clear (Clear); Bilirubin Urine Negative (Negative); Blood Urine Negative (Negative); Color Urine Yellow; Glucose Urine UA 3+ (Negative); Ketones Urine 1+ (Negative); Leukocyte Esterase Urine Negative (Negative); Nitrite Urine Negative (Negative); Protein Urine Negative (Negative); Specific Gravity Urine 1.021 (1.000-1.030); Urobilinogen Urine Negative (Negative)
--- NOTE | 2019-01-25 07:11 | XRay Report ---
XR chest 1V portable CLINICAL HISTORY: Chest pain. COMPARISON STUDY: Chest radiograph January 18, 2019. FINDINGS: Lung volumes are normal. There is no pneumothorax or pleural effusion. No consolidation is present. Mild interstitial thickening has developed. Cardiomediastinal silhouette is stable. IMPRESSION: Interval development of subtle interstitial prominence which may reflect pulmonary vascu lar congestion. An infectious process could appear similar although is considered less likely. Electronically signed by: Devon Ellison M.D. 01/25/2019 7:10 AM
--- NOTE | 2019-01-25 08:28 | Pre Anesthesia Assessment ---
Date of Service January 25, 2019 Pre Sedation Assessment Vital Signs Temp Pulse Pulse Resp BP BP Pulse Ox 01/25/19 07:08 36.7 C 88 18 117/74 95 01/25/19 04:20 36.6 C 101 H 18 129/76 92 01/25/19 01:41 95 H 18 152/91 H 97 01/25/19 01:30 36.9 C 102 H 16 166/92 H 94 Cardiovascular + regular rate Respiratory + respiratory effort normal Pre-Sedation Airway Assessment Smoking Status: Never smoker Hx Sleep Apnea: No Hx Difficult Intubation: No Short, Thick Neck: No Thyromental Distance: > or= 3.5 Finger Breadths Oral Cavity: + WNL Mallampati Class: III ASA: ASA3 Procedure Planning Contraindications for Sedation: none Current Medications Reviewed: Yes Notes The planned sedation has been discussed with the patient. Informed Consent was obtained. I have identified the patient, determined the appropriateness of sedation and have assessed the patient immediately prior to the procedure. All medicine(s) and interventions are by my order.
[2019-01-25] MEDS: VERAPAMIL HCL 120 MG TABCR PO SCH ×2 (09:01→22:10)
[2019-01-25] MEDS: ATORVASTATIN 40 MG TAB PO SCH (09:01)
[2019-01-25] MEDS: LOSARTAN/HCTZ 50/12.5MG TAB PO SCH (09:01)
[2019-01-25] MEDS: INSULIN ASPART 100 UNITS/ML 3 ML PEN SC SCH ×4 (09:02→22:10)
[2019-01-25] MEDS ORDERED: MIDAZOLAM HCL 1 MG/ML 2ML VIAL ONE (10:20)
[2019-01-25] MEDS ORDERED: fentaNYL citrate 100 MCG/2 ML VIAL ONE (10:20)
[2019-01-25] MEDS ORDERED: HEPARIN (PORCINE) 1000 UNIT/ML 10 ML (CATH LAB USE ONLY) ONE ×2 (10:20→13:01)
[2019-01-25] MEDS ORDERED: NiCARDipine HCL INJ 2.5 MG/ML 10 ML AMP ONE (10:21)
[2019-01-25] MEDS ORDERED: NITROGLYCERIN/D5W 100MCG/ML 20ML SYR ONE (10:21)
[2019-01-25 10:38] LABS: Partial Thromboplastin Ratio 1.6; Partial Thromboplastin Time 43.9 Seconds (21.0-31.0)
--- NOTE | 2019-01-25 10:42 | History & Physical Bridge Note ---
Date of Service January 25, 2019 History & Physical Bridge Note I have examined the patient, reviewed the History & Physical and in the interval since the performance of the History & Physical I have noted the following changes of clinical significance: Patient returned this morning with recurrent sx at rest.
--- NOTE | 2019-01-25 11:16 | Cardiac Catheterization ---
Cardiac Cath Procedure: Brief Procedure Date January 25, 2019 Pre-Procedure Diagnosis Pre-Procedure Diagnosis: Acute Coronary Syndrome and Positive Stress Test AUC Score AUC Score: 8 Post-Procedure Diagnosis Post-Procedure Diagnosis: Severe CAD Procedure(s) Performed Procedure(s) Performed: Coronary Angiography and Left Heart Cath Manager Reimbursement Isaiah Noriega MD Estimated Blood Loss Estimated Blood Loss: 10cc Medication(s) Medication(s): Fentanyl, Heparin, Nicardipine, Nitroglycerin and Versed Preliminary Findings Severe proximal LAD disease. Non-obstructive (mild) disease in an otherwise normal (right dominant) system. Normal LV pressures. Recommendations Recommendations: PCI without planned CABG Procedural Complication(s) None Disposition PCU
--- NOTE | 2019-01-25 11:48 | Cardiology Progress Note ---
Date of Service January 25, 2019 Assessment & Plan (1) Unstable angina: The patient's prior symptoms were consistent with an element of unstable angina given the relatively recent onset. He was felt to have significant coronary disease but the time of discharge this was purely exertional. Due to the recurrent nature of his symptoms and the symptoms which occurred at rest, this seems to be a more unstable process and he was admitted for more accelerated evaluation. Currently he is pain-free. He is a very minor elevation in his cardiac biomarkers. EKG is nonspecific. I would recommend continuation of heparin and aspirin. My intention is to perform coronary angiography today. I did describe the risks benefits and alternatives to coronary angiography with the patient and his . The therapy recommended will depend on the results and could include either medical therapy, percut aneous intervention or even surgical revascularization. Subjective The patient is a 58-year-old gentleman known to me from a recent admission for symptoms of exertional chest pain. During the patient's recent hospitalization he did undergo exercise treadmill testing with echocardiography. The test was terminated at a relatively short timeframe due to some minor EKG changes, the development of dyspnea and some echocardiographic findings suggestive of distal septal ischemia. Patient was sent home on an antianginal regimen and asked to refrain from severe activity. He was scheduled for an outpatient angiogram initially to be performed tomorrow. Patient states that over the past few days he has had occasional episodes of chest discomfort associated with some fairly mild exertion. These resolved quite quickly. However, last evening he awoke from sleep with symptoms of chest discomfort. Chest pain was characteristic of his prior angina. He did take some nitroglycerin with improvement but not relief. Due to the nature of the symptoms he [facility] he underwent a heparin infusion and additional application of nitroglycerin. This resolved his symptoms. Review of Systems Review of Systems: All systems reviewed & are unremarkable except as noted in HPI & below No other recent symptoms. Some dyspnea with chest pain. No dizziness or sense of palpitation. No syncope. Physical Exam Physical Exam: The patient is alert and oriented. Mood and affect appeared normal. He answered all questions appropriately. Obese HEENT: Pupils are equal and reactive to light and accommodation. Extraocular movements are intact. The sclerae are anicteric. Neuro: Cranial nerves intact Neck: Patient's neck is supple. He has palpable carotid pulses bilaterally without bruits on auscultation. There is no evidence of jugular venous distention. The thyroid is not enlarged. Lungs: Clear to auscultation bilaterally. He has good air movement without use of accessory muscles. No rales wheezes or rhonchi. Cardiac: Heart demonstrates a regular rate and rhythm. Normal S1 and S2. No murmurs on examination. Pulses: The patient has palpable radial pulses bilaterally that are equal in intensity Extremities: There was no evidence of hypoperfusion. There is no cyanosis or clubbing. There is no edema. Skin: I did not appreciate any rashes on examination today. Results & Data Vital Signs (Past 12 Hours) Vital Signs Temp Pulse Pulse Resp BP BP Pulse Ox 01/25/19 07:08 36.7 C 88 18 117/74 95 01/25/19 04:20 36.6 C 101 H 18 129/76 92 01/25/19 01:41 95 H 18 152/91 H 97 01/25/19 01:30 36.9 C 102 H 16 166/92 H 94 Laboratory Results Abnormal Lab Results 01/25/19 01/25/19 01/25/19 01:44 01:44 01:44 WBC 5.92 RBC 5.03 Hgb 14.9 Hct 41.2 L MCV 81.9 MCH 29.6 MCHC 36.2 H RDW Std Deviation 40.5 RDW Coeff of Nena 13.6 Plt Count 179 MPV 9.5 Immature Gran % (Auto) 0.7 Neut % (Auto) 52.4 Lymph % (Auto) 36.0 Kerr % (Auto) 6.4 Eos % (Auto) 3.7 Baso % (Auto) 0.8 Immature Gran # (Auto) 0.04 H Neut # (Auto) 3.10 Lymph # (Auto) 2.13 Kerr # (Auto) 0.38 Eos # (Auto) 0.22 Baso # (Auto) 0.05 PT 10.6 INR 1.0 APTT 24.5 PTT Ratio 0.9 Sodium 140 Potassium 3.8 Chloride 108 H Carbon Dioxide 22 Anion Gap 10.0 BUN 15 Creatinine 1.10 Est Cr Clr Drug Dosing 92.5 Est GFR ( Amer) 84.1 Est GFR (Non-Af Amer) 72.6 BUN/Creatinine Ratio 14.0 Glucose 210 H POC Glucose Calcium 8.7 Magnesium 1.8 Total Bilirubin 0.8 AST 35 ALT 61 Alkaline Phosphatase 68 Total Creatine Kinase 121 CK-MB (CK-2) 1.6 CK/CKMB % Calc 1.3 Troponin I 0.060 H* Total Protein 7.2 Albumin 3.8 Globulin 3.4 Albumin/Globulin Ratio 1.1 Lipase 1312 H TSH 5.220 H Free T4 1.02 Urine Color Urine Appearance Urine pH Ur Specific Sturgeon Urine Protein Urine Glucose (UA) Urine Ketones Urine Blood Urine Nitrite Urine Bilirubin Urine Urobilinogen Ur Leukocyte Esterase 01/25/19 01/25/19 01/25/19 06:15 07:29 10:06 WBC RBC Hgb Hct MCV MCH MCHC RDW Std Deviation RDW Coeff of Nena Plt Count MPV Immature Gran % (Auto) Neut % (Auto) Lymph % (Auto) Kerr % (Auto) Eos % (Auto) Baso % (Auto) Immature Gran # (Auto) Neut # (Auto) Lymph # (Auto) Kerr # (Auto) Eos # (Auto) Baso # (Auto) PT INR APTT 43.9 H PTT Ratio 1.6 Sodium Potassium Chloride Carbon Dioxide Anion Gap BUN Creatinine Est Cr Clr Drug Dosing Est GFR ( Amer) Est GFR (Non-Af Amer) BUN/Creatinine Ratio Glucose POC Glucose 182 H Calcium Magnesium Total Bilirubin AST ALT Alkaline Phosphatase Total Creatine Kinase CK-MB (CK-2) CK/CKMB % Calc Troponin I Total Protein Albumin Globulin Albumin/Globulin Ratio Lipase TSH Free T4 Urine Color Yellow Urine Appearance Clear Urine pH 5.0 Ur Specific Sturgeon 1.021 Urine Protein Negative Urine Glucose (UA) 3+ H Urine Ketones 1+ H Urine Blood Negative Urine Nitrite Negative Urine Bilirubin Negative Urine Urobilinogen Negative Ur Leukocyte Esterase Negative Diagnostic Findings Stress echocardiogram performed on 01/20/2019 revealed evidence of distal and apical septal ischemia. ECG Additional Comments: Nonspecific ST and T wave changes with some minor ST segment depressions diffusely.
--- NOTE | 2019-01-25 11:52 | Cardiac Catheterization ---
Date of Service January 25, 2019 Cardiac Cath Report Cardiac Cath Report Procedure performed: Left heart catheterization, coronary angiography Staff gunner mate: Isaiah Noriega MD Indication: Patient is a 58-year-old gentleman with a history of exertional angina and abnormal stress echocardiogram. He was scheduled for outpatient angiography based on his symptoms and objective findings but had an episode of chest discomfort at rest very early this morning. As such we performed coronary angiography today for unstable angina. Procedure in detail: The patient was informed of the risks benefits and alternatives to the intended procedure, he understood such and wished to proceed. He was taken to the cardiac catheterization suite in a fasting state. Conscious sedation was administered per protocol and the patient was monitored electrocardiographically throughout today's procedure. The right wrist area was prepped and draped in usual sterile fashion. This area was anesthetized using subcutaneous administration of a lidocaine solution. The right radial artery was then accessed using Seldinger technique, and a arterial sheath was placed at this site over a guidewire. The sheath was used to facilitate passage of the cardiac catheter for coronary angiography and left heart catheterization. Coronary angiogram was then obtained in multiple orthogonal views prior to removal of the catheter. At the conclusion of the procedure the sheath was removed and hemostasis was achieved at the access site using manual pressure. The patient tolerated procedure well, there were no immediate complications. Equipment used: 5 Polish [place] 4, 5 Polish angled pigtail Findings: Opening aortic pressure: 108/72 mmHg Closing aortic pressure: 119/72 mmHg Left ventricular pressure: 116/1 mmHg Left ventricular end-diastolic pressure: 10 mmHg Coronary angiography: Left main: Left main coronary artery was relatively long but bifurcated normally into the left anterior descending left circumflex. There is no significant obstructive disease in this vessel Left anterior descending: Left anterior descending was a large transapical vessel. There was significant disease in its proximal portion prior to the takeoff of the first diagonal. This compromise the lumen approximately 70%. There was also ostial disease involving the large first diagonal branch estimated at 70%. The remaining vessel had luminal irregularities and a fairly discrete stenosis in its distal portion estimated at 70%. Left circumflex: Left circumflex was a codominant vessel. Reproduced to large obtuse marginal branches. There are luminal irregularities without discrete stenoses Right coronary artery: The right coronary artery was a codominant vessel. There are luminal irregularities throughout its course without any discrete stenoses Impression: Severe proximal left anterior descending disease also involving the first diagonal branch Codominant coronary system Normal left ventricular end-diastolic pressure Plan: Patient will be referred for immediate percutaneous intervention involving the proximal left anterior descending
[2019-01-25] MEDS ORDERED: TICAGRELOR 90 MG TAB PO ONE (12:58)
--- NOTE | 2019-01-25 13:18 | Post Anesthesia Assessment ---
Date of Service January 25, 2019 Post Sedation Assessment Vital Signs Temp Pulse Pulse Resp BP BP Pulse Ox 01/25/19 07:08 36.7 C 88 18 117/74 95 01/25/19 04:20 36.6 C 101 H 18 129/76 92 01/25/19 01:41 95 H 18 152/91 H 97 01/25/19 01:30 36.9 C 102 H 16 166/92 H 94 Recovery Score Activity: Moves 4 extremities Respiration: Deep Breath/Cough Circulation: +/-20% PreAnes Value Consciousness: Fully Awake Oxygen Saturation: O2 needed for >90% Discharge Sedation Level of Care: Fast Track Phase II Post Sedation Plan On clinical assessment, the patient appears to have tolerated the sedation without complications. Patient is recovering as anticipated. Patient will continue to be monitored by nursing and may be discharged when sedation discharge criteria are met per below protocol. Upon Completions of procedure and additional 15 minutes continue every 5 minute vital signs and the P.A.R. score; then discharge to a Phase I or Fast Track to Phase II per the following guidelines: * Discharge Patient to appropriate Phase II area if PAR is 8 or greater or return to pre- procedure baseline. The post - procedure orders will be as directed. * If PAR score is less than 8 or not return to pre-procedure baseline then patient will follow Phase I monitoring till PAR is reached for Phase II. The Phase I may be done in procedure room or may call to secure a Phase I area. * If naloxone or flumazenil are used for reversal, hold in Phase I for continued monitoring from when last reversal dose was given for a minimum of 60 minutes or longer pending the nurse and/or physician discretion of patient condition before discharge to Phase II. Please call the Sedation Physician to re-evaluate and complete post-note for discharge to Phase II area. Do NOT discharge from procedure sedation or Phase 1 until post- sedation evaluation note is complete by procedure /sedation MD Sedation Discharge Instructions to be given to the patient at discharge to home.
--- NOTE | 2019-01-25 13:27 | Cardiac Catheterization ---
Cardiac Cath Procedure Full Procedure Date January 25, 2019 Pre-Procedure Diagnosis Pre-Procedure Diagnosis: Acute Coronary Syndrome and Positive Stress Test AUC Score AUC Score: 8 Post-Procedure Diagnosis Post-Procedure Diagnosis: Severe CAD and Successful PCI Procedure(s) Performed Procedure(s) Performed: Coronary Angiography, Drug Eluting Stent and IVUS Microbiology Lab Assistant Isaiah Rice MD Glass Ribbon Machine Operator(s) Marlo Estimated Blood Loss Estimated Blood Loss: 20 Medication(s) Medication(s): Fentanyl, Heparin, Nicardipine, Nitroglycerin and Versed Medication(s): Ticagrelor Summary of Findings Severe proximal LAD disease. Non-obstructive (mild) disease in an otherwise normal (right dominant) system. Normal LV pressures. Indication: Abnormal stress test, ACS Access: 6 Fr right radial artery Catheters: EBU 3.5 guide Findings: For full details of patient's coronary angiography please cath report dictated by Dr. Noriega. Briefly, patient found to have severe disease involving proximal LAD and bifurcation with second diagonal. Decision to proceed with PCI. -- PCI -- Antithrombotic therapy: Heparin, ticagrelor Procedure: Left main cannulated with EBU 3.5 guide Rn Circulating 50 wire passed across lesion into second diagonal Pro-water wire passed across LAD lesion into distal LAD IVUS used to assess extent of disease and proximal mid LAD and degree of calcification. Found to have severe stenosis extending from ostium into mid segment with moderate to severe calcification and high degree stenosis extending into diagonal. Proximal to mid LAD lesion predilated with 2.5 compliant balloon Ostium of diagonal dilated with 2.5 balloon 3.0 x 30 mm Mario drug-eluting stent placed from LAD ostium to mid segment across takeoff of diagonal Diagonal rewired with ferryboat pilot 50 wire Ostium of diagonal/stent struts dilated with 1.5 and 2.5 balloon Stent postdilated with 3.5 NC High-grade stenosis persisted in ostium of diagonal decision to place a second stent. Ostium of diagonal stented with 2.75 x 15 mm Mario "kissing balloon" inflation of LAD diagonal with 3.0 balloon in LAD, 2.75 stent balloon in diagonal Repeat IVUS assessment showed underexpanded midportion of LAD stent and ostium of diagonal. Ostium of diagonal dilated with 3.0 balloon LAD stent postdilated with 3.75 NC to high atmospheres IC vasodilators administered for spasm Post procedure MORGAN 3 flow, stent well expanded with minimal residual stenosis and no apparent cardiac complications. Arterial Closure: TR band Summary: 1. Successful PCI of ostial to mid LAD and bifurcating second diagonal with 2 drug-eluting stents (3.0 x 30 mm Grover to LAD postdilated to 3.75, 2.75 x 15 mm Mario in diagonal). Recommendations: To PCU for continued monitoring Loaded with ticagrelor 180 mg in laborer gold leaf Continue dual-antiplatelet therapy for at least one year Continue statin, and ASCVD risk factor modification Consult cardiac Rehab Hemodynamics Rest Ao:: 133/70/94 Final Ao: 124/76/98 LV: -- Recommendations Recommendations: PCI without planned CABG Specimens Specimens: None Radiation Exposure (mGy) 8259 Contrast (mls) 180 Fluids (cc crystalloids) Fluids (cc crystalloids): 225 Drains Drains: none Anesthesia moderate Procedural Complication(s) None Disposition PCU ACC Data: Campground Hand Cardiac Status Clinical evaluation leading to the procedure CAD Presenation: Non STEMI and Positive Stress Test Heart Failure: No Cardiogenic Shock within 24 Hours: No Cardiac Arrest within 24 Hours: No Imaging Studies Past 6 Months: Yes Stress Studies Past 6 Months: Yes Stress Echocardiogram: Yes - Positive and Risk/Extent of Ischemia (High) Diagnostic Physicians Name: Isaiah Rice MD Status: Elective Closure Device Percutaneous Entry Location: Radial Closure Device: Radial Band Recommendations: PCI without planned CABG PCI Indication: + Stress Test and PCI for high risk Non-GRUPO Lesion Segment Name: proximal LAD/second diagonal Culprit Artery: Yes Stenosis Prior to Rx (%): 70-80 Chronic Total Occlusion: No IVUS: Yes FFR: No Pre-Procedure MORGAN Flow: 3 Previously Treated Lesion: No Lesion Length (mm): 28 Thrombus Present: Yes Bifurcation Lesion: Yes Guidewire Across Lesion: Stenosis Post-Procedure (%): 0 Post-Procedure MORGAN Flow: 3 Devices(s) Deployed: Yes Yes Intraprocedure Events Significant Disection: No Perforation: No
--- NOTE | 2019-01-25 14:02 | History & Physical Bridge Note ---
Date of Service January 25, 2019 History & Physical Bridge Note I have examined the patient, reviewed the History & Physical and in the interval since the performance of the History & Physical I have noted the following changes of clinical significance: patient taken to heart catheterization lab diagnostic cath by Dr. Noriega showed 70% stenosis in diagonal branch and mid LAD Dr. Rice placed KATIA to both vessels tolerated well continue DAPT, statin therapy remain on tele and likely d/c to home tomorrow visited patient after cath, feeling well, no chest pain, eating lunch
[2019-01-25] MEDS ORDERED: ASPIRIN 81 MG ECTAB PO SCH (21:00)
[2019-01-25] MEDS ORDERED: INSULIN GLARGINE SOLOSTAR 100 UNITS/ML 3 ML PEN SQ SCH (21:00)
[2019-01-25] MEDS: TICAGRELOR 90 MG TAB PO SCH (22:10)
[2019-01-25] MEDS ORDERED: LORazepam 0.5 MG/1 ML VIAL IV STA (22:20)
[2019-01-26] MEDS: VERAPAMIL HCL 120 MG TABCR PO SCH (08:26)
[2019-01-26] MEDS: LOSARTAN/HCTZ 50/12.5MG TAB PO SCH (08:26)
[2019-01-26] MEDS: TICAGRELOR 90 MG TAB PO SCH (08:26)
[2019-01-26] MEDS: ATORVASTATIN 40 MG TAB PO SCH (08:27)
[2019-01-26] MEDS: INSULIN ASPART 100 UNITS/ML 3 ML PEN SC SCH (08:27)
[2019-01-26 08:35] LABS: BUN Creatinine Ratio 9.9 (10-20); Calcium 9.7 mg/dl (8.5-10.1); Creatinine Clr Calc Pharmacy 98.5 ml/min; Est GFR (Non-African American) 77.7; Potassium 4.2 mmol/L (3.5-5.1)
[2019-01-26] MEDS ORDERED: METOPROLOL TARTRATE 25 MG TAB PO SCH (09:00)
--- NOTE | 2019-01-26 09:23 | Cardiology Progress Note ---
Date of Service January 26, 2019 Assessment & Plan (1) Unstable angina: The patient underwent successful percutaneous intervention involving the proximal LAD yesterday. Is not had any recurrent symptoms. He does have some residual disease in the distal LAD which presents a low risk for significant coronary event but could produce symptoms in some circumstances. We will need to monitor him as an outpatient for any recurrent symptoms of chest discomfort with activity. No evident complication at the access site He will need to go home on dual antiplatelet therapy consisting of aspirin and Brilinta. He was placed on atorvastatin in the hospital but has had some intolerance of this in the past. He could be discharged on pravastatin, possibly 40 mg daily. I will arrange follow-up for him in our clinic within the next couple of weeks. Subjective This morning the patient claims he is feeling well. He denies any discomfort at the right radial access site or any discomfort in his hand. Is been amatory around his room without recurrent symptoms of chest pain or dyspnea. Review of Systems Review of Systems: Per HPI Physical Exam Physical Exam: Right wrist is without hematoma. There is good perfusion of the right hand. He has a palpable radial pulse. Results & Data Vital Signs (Past 12 Hours) Vital Signs Temp Pulse Resp BP BP Pulse Ox 01/26/19 08:00 37 C 84 16 148/87 H 96 01/26/19 03:20 36.7 C 84 18 134/81 99 01/25/19 23:52 36.7 C 102 H 18 129/77 98 Laboratory Results Abnormal Lab Results 01/25/19 01/25/19 01/25/19 10:06 11:13 11:51 APTT 43.9 H PTT Ratio 1.6 Activ Coag Time Kaolin 153 H 197 H Sodium Potassium Chloride Carbon Dioxide Anion Gap BUN Creatinine Est Cr Clr Drug Dosing Est GFR ( Amer) Est GFR (Non-Af Amer) BUN/Creatinine Ratio Glucose POC Glucose Calcium 01/25/19 01/25/19 01/25/19 12:11 12:43 16:23 APTT PTT Ratio Activ Coag Time Kaolin 224 H 252 H Sodium Potassium Chloride Carbon Dioxide Anion Gap BUN Creatinine Est Cr Clr Drug Dosing Est GFR ( Amer) Est GFR (Non-Af Amer) BUN/Creatinine Ratio Glucose POC Glucose 155 H Calcium 01/25/19 01/26/19 01/26/19 20:09 07:33 07:52 APTT PTT Ratio Activ Coag Time Kaolin Sodium 139 Potassium 4.2 Chloride 105 Carbon Dioxide 25 Anion Gap 9.0 BUN 10 D Creatinine 1.04 Est Cr Clr Drug Dosing 98.5 Est GFR ( Amer) 90.0 Est GFR (Non-Af Amer) 77.7 BUN/Creatinine Ratio 9.9 L Glucose 144 H POC Glucose 181 H 156 H Calcium 9.7 Diagnostic Findings Coronary angiography performed yesterday revealed a proximal LAD stenosis also involving the first diagonal. There was a distal stenosis in the LAD as well. No other obstructive disease.
--- NOTE | 2019-01-26 11:53 | Discharge Summary ---
Date of Service January 26, 2019 Admission HPI Per Admitting Provider 58-year-old male with a history of diabetes, hypertension, hyperlipidemia presents after waking up in the middle the night with acute chest pain. He described the chest pain is substernal tightness with associated shortness of breath. The patient took sublingual nitro which relieved the pain, but shortly after he began to have the pain again so he decided to come into the emergency room. Patient was admitted last week for unstable angina and had received a stress echo with a plan for a heart catheterization this Tuesday. Admission Exam Per Admitting Provider Constitutional: WD/WN, vitals as above Eyes: PERRL, conjunctivae normal, anicteric sclerae ENMT: external ear and nose normal, oropharynx normal Neck: trachea midline, no thyromegaly Respiratory: normal respiratory effort, lungs clear to auscultation Cardiovascular: RRR, no murmur, no edema Gastrointestinal (Abdomen): normal bowel sounds, soft, nontender, no hepa tosplenomegaly Musculoskeletal: no cyanosis or clubbing, extremities motor strength 5/5 Skin: no rashes, warm and dry Neurologic: PERRL, EOMI, accommodation nl, no face palsy, no dysarthria Psychiatric: A+Ox3, euthymic affect Principal Diagnosis Unstable angina Discharge Exam Constitutional WD/WN, vitals as above Eyes PERRL, conjunctivae normal, anicteric sclerae ENMT external ear and nose normal, oropharynx normal Neck trachea midline, no thyromegaly Respiratory normal respiratory effort, lungs clear to auscultation Cardiovascular RRR, no murmur, no edema Gastrointestinal (Abdomen) normal bowel sounds, soft, nontender, no hepatosplenomegaly Musculoskeletal no cyanosis or clubbing, extremities motor strength 5/5 Skin no rashes, warm and dry Neurologic patellar DTR's 2+ bilat, sensation intact and PERRL, EOMI, accommodation nl, no face palsy, no dysarthria Psychiatric A+Ox3, euthymic affect Lymphatic no cervical or axillary lymphadenopathy Discharge Data Allergies Allergy/AdvReac Type Severity Reaction Status Date / Time codeine Allergy Mild Itchiness Verified 01/25/19 04:21 Penicillins Allergy Unknown Unknown Verified 01/25/19 04:21 Consultations 01/25/19 03:42 ED Decision to Admit Stat 01/25/19 05:17 Consult Cardiology Routine Procedures Performed Operation Date: 01/25/19 09:30 Actual Procedures p Cath, Left with Cors and Vent(Not Applicable) - MD bebe Carranza IVUS Coronary Single Vessel(Not Applicable) - Manan Rice MD s IVUS Coronary each ADDL Vessel - MD bebe Mckay Drug Eluting Stent SGl Vessel - MD bebe Mckay Drug Eluting Stent each ADDTL Vessel - MD bebe Mckay Cineradiography w/Routine Exam - Manan Rice MD Ordered Studies 01/25/19 07:05 CL IVUS Coronary Single Vessel Routine 01/25/19 10:29 CL Cath Imgs for PACS use only Routine Hospital Course (1) Unstable angina: presented with chest pain at rest that woke him in the middle of the night had been experiencing chest pain on exertion but never at rest he took a nitro SL and the pain improved slightly but then came back so he came to the ED He had some mild ST depressions in lateral leads, troponin was negative, only peaked at 0.06 evaluated by cardiology in the morning on 01/25, taken to the heart hoisting laborer found to have CAD, had a 70% stenosis in mid LAD and 70% stenosis in diagonal branch two drug eluting stents placed in those areas, tolerated well, no chest pain or pressure afterwards repeat EKG showed resolution of the ST depressions treated initially with heparin drip and aspirin after the cath he was started on Brilinta BID and aspirin atorvastatin dose increased from 20mg to 40mg due to the CAD started on Metoprolol 25mg daily (2) CAD (coronary artery disease): see above will now be on Lipitor 40mg, Toprol 25mg, Brilinta and Aspirin (3) HOWE (dyspnea on exertion): resolved, was due to the unstable angina (4) Hyperlipidemia: increase Lipitor to 40mg (5) HTN (hypertension): blood pressure controlled of note, her Losartan/HCTZ was decreased due to starting Toprol will now be on Losartan/HCTZ, Toprol and Verapamil (6) Type 2 diabetes mellitus: will resume Metformin, Glipizide and Tresiba Total Time Total Time Spent Total Time Spent (In Minutes): 40 minutes Total Time Includes: Examination of the Patient, Discharge Planning, Medication Reconciliation and Communication With Other Providers (Dr. Noriega) Discharge Plan Discharge Items Patient Disposition: Home - Self-Care Reason For Visit: CHEST PAIN Discharge Diagnosis: Unstable angina Coronary artery disease s/p placement of drug eluting stents x 2 Condition: Good Discharge Goals: Improve disease control and Improve function Activity: Per 'Additional Instructions' section Lifting: Gradually increase as tolerated Bathing: No limitations Sexual Activity: After two weeks Exercise/Sports: Gradually increase as tolerated Driving/Machine Use: No limitations Non-emergency contact: Primary Care Provider and Bakery Products Checker Call non-emergency contact if: you have any medication questions, your symptoms worsen, your pain is not controlled and you have a fever Follow-up/Referrals: Ry Rodriguez MD [Primary Care Provider] - Diet: Carb Consistent or DM2 and Heart Healthy Addtl Provider Instructions: Medications: see the new or changed medications - BRILINTA: take twice a day, antiplatelet medication to keep stent open - ATORVASTATIN: increased to 40mg due to the finding of severe CAD - LOSARTAN/HCTZ: dose reduced to 50/12.5mg from 100/25mg due to starting Metoprolol - METOPROLOL: 25mg daily, new medication that is indicated in coronary disease Unstable angina, CAD treated initially with aspirin, heparin drip cath on 01/25 showed CAD with stents placed in the LAD and diagonal branch FOLLOW UP - Dr. Rodriguez in one week, call office for follow up - Dr. Noriega/Dwayne, cardiology, in 2-3 weeks, their office will contact you, but if you don't hear from them call [phone] Prescriptions: New atorvastatin 40 mg Tablet 40 mg PO QAM 30 Days Qty: 30 RF: 3 losartan-hydrochlorothiazide 50-12.5 mg Tablet 1 tab PO QAM 30 Days Qty: 30 RF: 2 metoprolol tartrate 25 mg Tablet 25 mg PO QAM 30 Days Qty: 30 RF: 3 Brilinta 90 mg Tablet 90 mg PO BID 30 Days Qty: 60 RF: 3 Continued glipizide 5 mg tablet 10 mg PO BID RF: 0 multivitamin Tablet 1 tab PO DAILY RF: 0 aspirin 81 mg Tablet,Delayed Release (Dr/Ec) 81 mg PO QPM RF: 0 metformin 1,000 mg tablet 1,000 mg PO BID RF: 0 Tresiba FlexTouch U-200 200 unit/mL (3 mL) insulin pen 50 units subcut QPM RF: 0 nitroglycerin 0.4 mg tablet, sublingual 0.4 mg sublingual Q5M PRN (Reason: chest pain) Qty: 1 RF: 0 verapamil 120 mg capsule,ext rel. pellets 24 hr 120 mg PO BID Qty: 60 RF: 2 Discontinued losartan-hydrochlorothiazide 100-25 mg tablet 1 tab PO QAM RF: 0 pravastatin 20 mg tablet 20 mg PO DAILY Qty: 30 RF: 2 Stand-Alone Forms: Call Back Authorization, [facility] Discharge Orders: Discharge Order (Routine); Ordered 01/26/19 Ordered By: Kevan Ma Admission Data Admit Date/Time: 01/25/19 04:45 Attending Provider: Kevan Ma Admit Provider: Saulo Deluca Primary Care Provider: Ry Rodriguez Other Providers: Kashmir Freitas ; Lei Lowery ; John Caldera ; Allan Burns ; Deepak Toscano ; Joe Wen Jr ; Scot Ferrari ; Alyssia Chisholm ; Mela Wong ; Manan Rice ; Manan Noriega ; Luis Felipe Camejo ; Zaki Bruce ; Deanne Chicas ; Johanne Hernandez Service: Telemetry Other Interventions: Discharge Summary Assessment (RN) Last Done: 01/26/19 10:11
== END 2019-01-26 10:50 | disposition home or self-care (01) | DRG 247 ==
LOC: ED 01:28 → 2S 04:45 → SUATTDRO 04:45
DX: Z79.899 Other long term (current) drug therapy; I25.110 Atherosclerotic heart disease of native coronary artery with unstable angina pectoris; R00.0 Tachycardia, unspecified; E78.5 Hyperlipidemia, unspecified; Z79.84 Long term (current) use of oral hypoglycemic drugs; I10 Essential (primary) hypertension; E11.9 Type 2 diabetes mellitus without complications; Z79.82 Long term (current) use of aspirin; Z88.5 Allergy status to narcotic agent; R06.00 Dyspnea, unspecified; Z88.0 Allergy status to penicillin

== ENCOUNTER 2025-03-14 17:33 | Observation (INO) ==
[2025-03-14 18:09] LABS: Hematocrit (blood only) 41.9 % (42.0-52.0); Hemoglobin 15.3 g/dl (14.0-18.0); Mean Corpuscular Hemoglobin 29.9 pg (25.0-34.0); Mean Corpuscular Volume 81.8 fL (80.0-100.0); Platelet Count 193 K/uL (130-400); RDW Standard Deviation 40.0 fL (36.4-46.3); Red Blood Count 5.12 M/uL (4.70-6.10); White Blood Count 6.42 K/ul (4.8-10.8)
[2025-03-14 18:29] LABS: Alanine Aminotransferase 52.0 U/L (7-52); Albumin Globulin Ratio 1.6 (0.9-2); Alkaline Phosphatase 55.0 U/L (34-104); Anion Gap 11.0 (3-11); Bilirubin,Total 1.2 mg/dl (0.2-1.0); Blood Urea Nitrogen 18.0 mg/dl (6-23); Calcium 9.8 mg/dl (8.6-10.3); Carbon Dioxide 23.0 mmol/L (21-32); Chloride 105.0 mmol/L (98-107); Creatinine Clr Calc Pharmacy 98.9 ml/min; Globulin 2.9 gm/dl (2.5-4.0); Glucose 93.0 mg/dl (70-99(Fasting)); Magnesium 1.8 mg/dl (1.7-2.4); Potassium 4.2 mmol/L (3.5-5.1); Sodium 139.0 mmol/L (136-145); Total Protein 7.5 gm/dl (6.0-8.3)
[2025-03-14 18:37] LABS: INR 1.0 (0.9-1.1); Partial Thromboplastin Time 25 Seconds (21-31); Prothrombin Time 11.2 Seconds (9.0-12.0)
--- NOTE | 2025-03-14 20:06 | Emergency Department Note ---
Impression & Plan Stroke-like symptoms, Facial droop, Slurred speech ED Provider Note NAME: MARIVEL MOONEY AGE: 64 SEX: M : 1960 ARRIVES VIA: Walk-In INFORMANT: Patient ED PROVIDER(S): Marshall Portillo DO CHIEF COMPLAINT: Right-sided facial droop HPI: Patient is a 64-year-old male with a past medical history of diabetes, hypertension, hyperlipidemia and CVA who presents to the ER for symptoms that started on Tuesday. Patient has had a slight right-sided facial droop and some garbled speech intermittently since then. is present bedside provides additional history and notes that she has noticed it worse today. Patient denies any headache or change or loss of vision. No chest pain or shortness of breath. No nausea, vomiting, or diarrhea. No dysuria, urgency, or frequency. No other exacerbating or remitting factors. ADDITIONAL HISTORY OBTAINED: provides additional history at bedside notes that she initially noticed it on Tuesday. Chronic Medical/Social Conditions Affecting Care: Per HPI PAST MEDICAL HISTORY:See Below PAST SURGICAL HISTORY:See Below FAMILY HISTORY:See Below SOCIAL HISTORY:See Below HOME MEDICATIONS:See Below ALLERGIES:See Below VITALS:See Below PHYSICAL EXAMINATION: GENERAL: Sitting up in bed, alert, well appearing, well nourished, no distress, non-toxic EYE EXAM: normal conjunctiva. PERRL and EOM's intact. OROPHARYNX: no exudate, no erythema, lips, buccal mucosa, and tongue normal and mucous membranes are moist NECK: supple, no nuchal rigidity, no adenopathy, non-tender LUNGS: Clear to auscultation. Normal chest wall mechanics HEART: no murmurs, S1 normal and S2 normal ABDOMEN: abdomen soft, non-tender, normo-active bowel sounds, no masses, no rebound or guarding. BACK: Back is symmetrical on inspection and there is no deformity, no midline tenderness, no CVA tenderness. SKIN: no rashes and no bruising UPPER EXTREMITIES: upper extremities are grossly normal. LOWER EXTREMITIES: No pitting edema. NEURO EXAM: Normal sensorium, cranial nerves II-XII intact, normal speech, no weakness of arms, no weakness of legs. No drift. Finger to nose intact. Gross sensation intact. MEDICAL DECISION MAKING: Patient is a 64-year-old male with a past medical history of diabetes, BPH, hypertension hyperlipidemia who presents ER for the above-stated complaint. Labs show no significant leukocytosis or anemia. INR unremarkable. BMP along LFTs and bilirubin was unremarkable. Lyme was ordered but pending. Discussed with her she telestroke Dr. Judd. He recommended admission, Plavix and complete stroke workup. Patient denies any bleeding risk factors which were discussed at bedside. He was updated at bedside and admitted following negative CTAs of the head and neck. Consults/Care Managements Discussions: Per [facility] Triage Nursing notes reviewed. Limited review of prior medical records performed Vital Signs: reviewed and remarkable for HTN Differential diagnosis: Differential Diagnosis includes but is not limited to ischemic Stroke, hemorrhagic stroke, bells palsy, mass, neoplasm, migraine headache, seizure, subarachnoid hemorrhage, TIA, and transient global amnesia. ER treatment provided: See below Diagnostics interpreted by me include EKG and cardiac monitoring as listed below: -Cardiac Monitoring: An order was placed for continuous cardiac monitoring. The monitor shows a rate of 80 with sinus rhythm. -ECG: Sinus tachycardia rate of 1 1 Normal axis T wave inversions in inferior leads QTc 440 -Laboratory studies:Interpreted by me as stated above in MDM and shown below. Imaging studies: Xrays: As interpreted by me:none CTs show: CT Noncon of the head shows no obvious large bleed CT angios of the head and neck were negative per radiology Procedures:none Critical Care: None Past Med/Surg History Problem List (Updated 03/14/25 @ 22:52 by Marshall Portillo DO) Slurred speech (Acute) Facial droop (Acute) Stroke-like symptoms (Acute) Stroke-like symptom Prostate cancer (Chronic 06/25/24) Diabetic nephropathy Subclinical hypothyroidism Elevated PSA BPH (benign prostatic hyperplasia) Microalbuminuria Type 2 diabetes mellitus with complications Rhinitis LPRD (laryngopharyngeal reflux disease) Chronic throat clearing Fatty liver Type 2 diabetes mellitus (Chronic) HTN (hypertension) (Chronic) Hyperlipidemia (Chronic) CAD (coronary artery disease) (Chronic) Presence of stent in LAD coronary artery (12/2018) Anxiety (Chronic) Periodic limb movement disorder (Chronic) Medical History (Updated 03/14/25 @ 22:52 by Marshall Portillo DO) Insomnia Diverticulosis Rectal abscess In his 20s Hypothyroidism Diabetic nephropathy associated with type 2 diabetes mellitus Male erectile disorder of organic origin Nonalcoholic fatty liver disease Numerous moles Obesity (BMI 35.0-39.9 without comorbidity) Surgical History (Updated 08/09/24 @ 10:00 by Dina Bellamy RN) History of cardiac cath S/P angioplasty with stent Stent x 2 History of colonoscopy (~2009) S/P tonsillectomy S/P anal fissurectomy Family History (Updated 08/09/24 @ 10:04 by Dina Bellamy, RN) Mother , 81yo Stroke Diabetes Crohn's disease Smoker Father , 70yo Stroke Hypertension Prostate cancer Lung cancer Brother Arthritis Hypertension Sister Twin Pts twin sister Daughter No problems noted. 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: No Beliefs That Will Affect Care: None marital status: Unknown Current Living Situation: Spouse current occupational status: retired How many Children do You have: 2 Feels Safe at Home: Yes Diet: regular caffeine: Yes (2 cups/day) during the past year weight has: remained stable Assistive Devices: Glasses Allergies Allergies Allergy/AdvReac Type Severity Reaction Status Date / Time codeine Allergy Intermediate Itchiness Verified 03/14/25 21:59 Penicillins Allergy Intermediate Hives Verified 03/14/25 21:59 simvastatin AdvReac Severe SEVERE Verified 03/14/25 21:59 WEAKNESS IN LEG MUSCLES Home Meds Home Medications Medication Instructions Recorded Confirmed aspirin 81 mg tablet,delayed 81 mg PO DAILY 12/24/18 03/14/25 release multivitamin 1 tab PO DAILY 12/24/18 03/14/25 lancets 30 gauge (OneTouch Delica #25 ea 03/29/19 02/11/25 Lancets) pen needle, diabetic 32 gauge x #10 ea 03/29/19 02/11/25" (BD Lydia 2nd Gen Pen Needle) insulin aspart U-100 100 unit/mL 20 unit subcut TID 08/09/24 03/14/25 (3 mL) subcutaneous pen (Novolog FlexPen U-100 Insulin aspart) insulin degludec 200 unit/mL (3 100 unit subcut QAM 08/09/24 03/14/25 mL) subcutaneous pen (Tresiba FlexTouch U-200 insulin) ipratropium bromide 21 mcg (0.03 2 spray intranasal TID PRN Nasal 08/09/24 03/14/25 %) nasal spray Congestion clonazepam 0.5 mg tablet 0.5 mg PO QPM 02/15/25 03/14/25 metformin 500 mg tablet,extended 1,000 mg PO BID 03/14/25 03/14/25 release 24 hr Previous Rx's Medication Instructions Recorded nitroglycerin 0.4 mg sublingual 0.4 mg sublingual Q5M PRN chest 09/04/19 tablet pain #1 btl FreeStyle João 3 Sensor #9 ea 07/08/23 (blood-glucose sensor) OneTouch Ultra Test (blood sugar #100 ea 07/08/23 diagnostic) ezetimibe 10 mg tablet 10 mg PO DAILY #90 tabs 07/28/23 hydrochlorothiazide 25 mg tablet 25 mg PO DAILY #90 tabs 08/09/23 losartan 100 mg tablet 100 mg PO DAILY #90 tabs 08/09/23 metoprolol succinate 25 mg 12.5 mg (1/2 x 25 mg) PO DAILY #45 08/09/23 tablet,extended release 24 hr tabs (Toprol XL) pravastatin 40 mg tablet 40 mg PO DAILY #90 tabs 08/09/23 verapamil 120 mg tablet,extended 120 mg PO BID #180 tabs 08/09/23 release levothyroxine 88 mcg tablet 88 mcg PO DAILY #90 tabs 03/26/24 tamsulosin 0.4 mg capsule 0.4 mg PO DAILY #30 caps 10/08/24 Results & Data (ED) Vital Signs Vital Signs - 24 hr 03/14/25 17:37 03/14/25 19:32 03/14/25 19:32 Temperature 36.6 C Temperature Source Temporal Artery Scan Pulse Rate 106 H 90 Pulse Rate [Apical] 90 Pulse Rate from SpO2 Sensor Pulse Rhythm [Apical] Regular Respiratory Rate 16 18 19 Respiratory Effort / Characteristics Non-Labored Spontaneous Respiratory Depth Normal Respiratory Pattern Regular Blood Pressure 160/96 H 173/92 H Blood Pressure [Right Arm] 173/92 H Blood Pressure Mean 117 112 Blood Pressure Mean [Right Arm] 119 Pulse Oximetry 97 96 93 Oxygen Delivery Method Room Air Room Air Room Air Sepsis Recent Fever Within 48 Hours No Sepsis New/Unexplained Change in Mental Status No Sepsis Action Taken by Nursing No Action Required 03/14/25 20:00 03/14/25 20:54 03/14/25 20:57 Temperature Temperature Source Pulse Rate 88 91 H Pulse Rate [Apical] Pulse Rate from SpO2 Sensor 88 91 H Pulse Rhythm [Apical] Respiratory Rate 19 15 Respiratory Effort / Characteristics Respiratory Depth Respiratory Pattern Blood Pressure 169/100 H 166/97 H Blood Pressure [Right Arm] Blood Pressure Mean 123 119 Blood Pressure Mean [Right Arm] Pulse Oximetry 94 94 Oxygen Delivery Method Room Air Room Air Sepsis Recent Fever Within 48 Hours Sepsis New/Unexplained Change in Mental Status Sepsis Action Taken by Nursing 03/14/25 21:00 03/14/25 21:30 03/14/25 21:30 Temperature Temperature Source Pulse Rate 89 95 H Pulse Rate [Apical] 97 H Pulse Rate from SpO2 Sensor 94 H Pulse Rhythm [Apical] Regular Respiratory Rate 14 19 17 Respiratory Effort / Characteristics Non-Labored Spontaneous Respiratory Depth Normal Respiratory Pattern Regular Blood Pressure 153/94 H 173/104 H Blood Pressure [Right Arm] 173/104 H Blood Pressure Mean 112 127 Blood Pressure Mean [Right Arm] 127 Pulse Oximetry 94 95 94 Oxygen Delivery Method Room Air Room Air Room Air Sepsis Recent Fever Within 48 Hours Sepsis New/Unexplained Change in Mental Status Sepsis Action Taken by Nursing 03/14/25 22:06 Temperature Temperature Source Pulse Rate 89 Pulse Rate [Apical] Pulse Rate from SpO2 Sensor 89 Pulse Rhythm [Apical] Respiratory Rate 20 Respiratory Effort / Characteristics Respiratory Depth Respiratory Pattern Blood Pressure 162/107 H Blood Pressure [Right Arm] Blood Pressure Mean 125 Blood Pressure Mean [Right Arm] Pulse Oximetry 95 Oxygen Delivery Method Room Air Sepsis Recent Fever Within 48 Hours Sepsis New/Unexplained Change in Mental Status Sepsis Action Taken by Nursing Laboratory Data 03/14/25 17:58 03/14/25 17:58 Lab Results 03/14/25 Range/Units 17:58 WBC 6.42 (4.8-10.8) K/ul RBC 5.12 (4.70-6.10) M/uL Hgb 15.3 (14.0-18.0) g/dl Hct 41.9 L (42.0-52.0) % MCV 81.8 (80.0-100.0) fL MCH 29.9 (25.0-34.0) pg MCHC 36.5 H (32.0-36.0) g/dL RDW Std Deviation 40.0 (36.4-46.3) fL RDW Coeff of Nena 13.6 (11.5-14.5) % Plt Count 193 (130-400) K/uL MPV 9.2 L (9.4-12.4) fL PT 11.2 (9.0-12.0) Seconds INR 1.0 (0.9-1.1) APTT 25 (21-31) Seconds PTT Ratio 0.9 Sodium 139 (136-145) mmol/L Potassium 4.2 (3.5-5.1) mmol/L Chloride 105 (98-107) mmol/L Carbon Dioxide 23 (21-32) mmol/L Anion Gap 11 (3-11) BUN 18 (6-23) mg/dl Creatinine 0.95 (0.6-1.4) mg/dl Est Cr Clr Drug Dosing 98.9 ml/min eGFR 88.28 BUN/Creatinine Ratio 18.9 (10-20) Glucose 93 (70-99(Fasting)) mg/dl Calcium 9.8 (8.6-10.3) mg/dl Magnesium 1.8 (1.7-2.4) mg/dl Total Bilirubin 1.2 H (0.2-1.0) mg/dl AST 58 H (13-39) U/L ALT 52 (7-52) U/L Alkaline Phosphatase 55 (34-104) U/L Total Protein 7.5 (6.0-8.3) gm/dl Albumin 4.6 (3.4-5.0) gm/dl Globulin 2.9 (2.5-4.0) gm/dl Albumin/Globulin Ratio 1.6 (0.9-2) Administered Medications Discontinued Medications Clopidogrel Bisulfate (Clopidogrel Bisulfate 300 Mg Tab) 300 mg PO NOW STA Stop: 03/14/25 21:18 Last Admin: 03/14/25 21:41 Dose: 300 mg Documented By: CECILLES Imaging Data Radiologist's Impression: Head CTA 03/14/25 18:55 HISTORY: Stroke TECHNIQUE: CT angiography of the head and the neck was performed. Noncontrast CT head was obtained coronal and sagittal reformats were created. IV CONTRAST: 100 mL of OMNIPAQUE 300 COMPARISON: None FINDINGS: CTA HEAD: Stenotic/occlusive disease: Moderate stenosis of the left ICA paraclinoid segment secondary to atherosclerosis. Aneurysm: None Vascular malformation: None NONVASCULAR: Brain parenchyma: Chronic white management changes. Extra-axial space: Unremarkable Ventricular system: Unremarkable Additional comments: None CTA NECK: Right carotid: No hemodynamically significant stenosis. Left carotid: No hemodynamically significant stenosis. Vertebrobasilar system: No hemodynamically significant stenosis. Aortic arch and subclavian arteries: No hemodynamically significant stenosis. Nonvascular structures: Unremarkable. Stenosis ranges are derived using NASCET criteria. IMPRESSION: No acute injury or process identified. No large vessel occlusion Moderate stenosis of the left ICA paraclinoid segment secondary to atherosclerosis. Electronically signed by Farshad Rojas 03-14-2025 8:41 PM Neck CTA 03/14/25 18:55 HISTORY: Stroke TECHNIQUE: CT angiography of the head and the neck was performed. Noncontrast CT head was obtained coronal and sagittal reformats were created. IV CONTRAST: 100 mL of OMNIPAQUE 300 COMPARISON: None FINDINGS: CTA HEAD: Stenotic/occlusive disease: Moderate stenosis of the left ICA paraclinoid segment secondary to atherosclerosis. Aneurysm: None Vascular malformation: None NONVASCULAR: Brain parenchyma: Chronic white management changes. Extra-axial space: Unremarkable Ventricular system: Unremarkable Additional comments: None CTA NECK: Right carotid: No hemodynamically significant stenosis. Left carotid: No hemodynamically significant stenosis. Vertebrobasilar system: No hemodynamically significant stenosis. Aortic arch and subclavian arteries: No hemodynamically significant stenosis. Nonvascular structures: Unremarkable. Stenosis ranges are derived using NASCET criteria. IMPRESSION: No acute injury or process identified. No large vessel occlusion Moderate stenosis of the left ICA paraclinoid segment secondary to atherosclerosis. Electronically signed by Farshad Rojas 03-14-2025 8:41 PM Discharge Plan Visit Data Chief Complaint: Neuro Symptoms/Deficit Stated Complaint: DROOPPING MOUTH, ED Provider: Marshall Portillo Discharge Problem: Stroke-like symptoms, Facial droop, Slurred speech Condition: Fair Forms Stand Alone Forms: [facility] Prescriptions Prescriptions: No Action ipratropium bromide 21 mcg (0.03 %) spray,non-aerosol 2 spray intranasal TID PRN (Reason: Nasal Congestion) Rx Instructions: administer into each nostril Tresiba FlexTouch U-200 200 unit/mL (3 mL) insulin pen 100 unit subcut QAM insulin aspart U-100 [Novolog FlexPen U-100 Insulin] 100 unit/mL (3 mL) insulin pen 20 unit subcut TID clonazepam 0.5 mg tablet 0.5 mg PO QPM Patient Comments: slowly weaning (DME) FreeStyle João 3 Sensor Device See Rx Instructions .ROUTE .MEDSUPPLY Qty: 9 3RF Rx Instructions: change sensor every 10 days (DME) OneTouch Ultra Test Strip See Rx Instructions .Route Qty: 100 3RF Rx Instructions: Use to test blood sugar once a day ezetimibe 10 mg tablet 10 mg PO DAILY Qty: 90 3RF hydrochlorothiazide 25 mg tablet 25 mg PO DAILY Qty: 90 3RF losartan 100 mg tablet 100 mg PO DAILY Qty: 90 3RF metoprolol succinate [Toprol XL] 25 mg tablet extended release 24 hr 12.5 mg PO DAILY Qty: 45 3RF pravastatin 40 mg tablet 40 mg PO DAILY Qty: 90 3RF verapamil 120 mg tablet extended release 120 mg PO BID Qty: 180 2RF levothyroxine 88 mcg tablet 88 mcg PO DAILY Qty: 90 1RF Rx Instructions: Take one tablet daily 30-45 minutes before any other oral intake. tamsulosin 0.4 mg capsule 0.4 mg PO DAILY Qty: 30 5RF Patient Comments: not currently taking Rx Instructions: Take 1 pill after supper. nitroglycerin 0.4 mg tablet, sublingual 0.4 mg sublingual Q5M PRN (Reason: chest pain) Qty: 1 0RF Rx Instructions: max 3 tablets in 15 minutes (DME) pen needle, diabetic [BD Lydia 2nd Gen Pen Needle] 32 gauge x 5/32" needle See Dose Instructions .ROUTE .MEDSUPPLY Qty: 10 Rx Instructions: As directed (DME) lancets [OneTouch Delica Lancets] 30 gauge misc See Dose Instructions .ROUTE .MEDSUPPLY Qty: 25 Rx Instructions: As directed multivitamin Tablet 1 tab PO DAILY aspirin 81 mg Tablet,Delayed Release (Dr/Ec) 81 mg PO DAILY metformin 500 mg tablet extended release 24 hr 1,000 mg PO BID Referrals Referrals: Sangeeta Johnson DO [Primary Care Provider] -
--- NOTE | 2025-03-14 20:42 | CT Scan Report ---
HISTORY: Stroke TECHNIQUE: CT angiography of the head and the neck was performed. Noncontrast CT head was obtained coronal and sagittal reformats were created. IV CONTRAST: 100 mL of OMNIPAQUE 300 COMPARISON: None FINDINGS: CTA HEAD: Stenotic/occlusive disease: Moderate stenosis of the left ICA paraclinoid segment secondary to atherosclerosis. Aneurysm: None Vascular malformation: None NONVASCULAR: Brain parenchyma: Chronic white management changes. Extra-axial space: Unremarkable Ventricular system: Unremarkable Additional comments: None CTA NECK: Right carotid: No hemodynamically significant stenosis. Left carotid: No hemodynamically significant stenosis. Vertebrobasilar system: No hemodynamically significant stenosis. Aortic arch and subclavian arteries: No hemodynamically significant stenosis. Nonvascular structures: Unremarkable. Stenosis ranges are derived using NASCET criteria. IMPRESSION: No acute injury or process identified. No large vessel occlusion Moderate stenosis of the left ICA paraclinoid segment secondary to atherosclerosis. Electronically signed by Farshad Rojas 03-14-2025 8:41 PM
--- NOTE | 2025-03-14 21:22 | History & Physical Report ---
Date of Service March 14, 2025 Assessment & Plan (1) Stroke-like symptom: Plan: Neurology consult PT and OT consults Speech consults Continue clopidogrel Continue aspirin Continue statin Unclear if MRI can be done Check echo (2) Type 2 diabetes mellitus with complications: Plan: Check glucoses point of service AC and at bedtime Continue home regimen Heart healthy, diabetic diet (3) Subclinical hypothyroidism: Plan: Continue levothyroxine Last TSH was done on 02/05/2025 and was normal at 2.76 (4) HTN (hypertension): Plan: Continue hydrochlorothiazide Continue verapamil Continue losartan Follow BPs (5) Hyperlipidemia: Plan: Continue statin (6) CAD (coronary artery disease): Plan: Continue aspirin Plan Patient is a full code VTE prophylaxis: Lovenox Care and care coordination was discussed with the ER provider. Total time 75 minutes was spent in care coordination and care of this patient History of Present Illness Chief Complaint: Stroke symptoms Primary Care Provider: Sangeeta Johnson DO Reese Bailey is a 64-year-old male with a past medical history of type II diabetes mellitus, hypertension, hyperlipidemia, prostate cancer with completion of recent treatment, hypothyroidism, hyperlipidemia, CAD with stent x 2 and CVA who presents to the ER today for strokelike symptoms. Patient has had a slight right-sided facial droop and some garbled speech intermittently since Tuesday 2 days ago. Patient's spouse is present at bedside provides additional history and notes that she has noticed that the symptoms were worse today. No other exacerbating or remitting factors. Patient denies numbness or weakness in the right upper extremity or right lower extremity. No visual field loss. Stroke alert was called. CTA and CT scans of the brain were noted. Teleneurology was consulted. They recommended admission with continuation of aspirin and addition of clopidogrel. Patient states he was on clopidogrel after his stents. Unclear if MRI can be done with stents. Patient's symptoms seem to be largely resolved at the time of my examination. No known tick bites. A Lyme test has been ordered Allergies Allergy/AdvReac Type Severity Reaction Status Date / Time codeine Allergy Intermediate Itchiness Verified 03/14/25 21:59 Penicillins Allergy Intermediate Hives Verified 03/14/25 21:59 simvastatin AdvReac Severe SEVERE Verified 03/14/25 21:59 WEAKNESS IN LEG MUSCLES Home Medications Medication Instructions Recorded Confirmed Type aspirin 81 mg tablet,delayed 81 mg PO DAILY 12/24/18 03/14/25 History release multivitamin 1 tab PO DAILY 12/24/18 03/14/25 History lancets 30 gauge (OneTouch Delica #25 ea 03/29/19 02/11/25 History Lancets) pen needle, diabetic 32 gauge x #10 ea 03/29/19 02/11/25 History 5/32" (BD Lydia 2nd Gen Pen Needle) nitroglycerin 0.4 mg sublingual 0.4 mg sublingual Q5M PRN chest 09/04/19 03/14/25 Rx tablet pain #1 btl FreeStyle João 3 Sensor #9 ea 07/08/23 02/11/25 Rx (blood-glucose sensor) OneTouch Ultra Test (blood sugar #100 ea 07/08/23 02/11/25 Rx diagnostic) ezetimibe 10 mg tablet 10 mg PO DAILY #90 tabs 07/28/23 03/14/25 Rx hydrochlorothiazide 25 mg tablet 25 mg PO DAILY #90 tabs 08/09/23 03/14/25 Rx losartan 100 mg tablet 100 mg PO DAILY #90 tabs 08/09/23 03/14/25 Rx metoprolol succinate 25 mg 12.5 mg (1/2 x 25 mg) PO DAILY #45 08/09/23 03/14/25 Rx tablet,extended release 24 hr tabs (Toprol XL) pravastatin 40 mg tablet 40 mg PO DAILY #90 tabs 08/09/23 03/14/25 Rx verapamil 120 mg tablet,extended 120 mg PO BID #180 tabs 08/09/23 03/14/25 Rx release levothyroxine 88 mcg tablet 88 mcg PO DAILY #90 tabs 03/26/24 03/14/25 Rx insulin aspart U-100 100 unit/mL 20 unit subcut TID 08/09/24 03/14/25 History (3 mL) subcutaneous pen (Novolog FlexPen U-100 Insulin aspart) insulin degludec 200 unit/mL (3 100 unit subcut QAM 08/09/24 03/14/25 History mL) subcutaneous pen (Tresiba FlexTouch U-200 insulin) ipratropium bromide 21 mcg (0.03 2 spray intranasal TID PRN Nasal 08/09/24 03/14/25 History %) nasal spray Congestion tamsulosin 0.4 mg capsule 0.4 mg PO DAILY #30 caps 10/08/24 03/14/25 Rx clonazepam 0.5 mg tablet 0.5 mg PO QPM 02/15/25 03/14/25 History metformin 500 mg tablet,extended 1,000 mg PO BID 03/14/25 03/14/25 History release 24 hr Past Med/Surg History Problem List (Updated 03/14/25 @ 22:08 by Ry Latif DO) Stroke-like symptom Prostate cancer (Chronic 06/25/24) Diabetic nephropathy Subclinical hypothyroidism Elevated PSA BPH (benign prostatic hyperplasia) Microalbuminuria Type 2 diabetes mellitus with complications Rhinitis LPRD (laryngopharyngeal reflux disease) Chronic throat clearing Fatty liver Type 2 diabetes mellitus (Chronic) HTN (hypertension) (Chronic) Hyperlipidemia (Chronic) CAD (coronary artery disease) (Chronic) Presence of stent in LAD coronary artery (12/2018) Anxiety (Chronic) Periodic limb movement disorder (Chronic) Medical History (Updated 03/14/25 @ 22:08 by Ry Latif DO) Insomnia Diverticulosis Rectal abscess In his 20s Hypothyroidism Diabetic nephropathy associated with type 2 diabetes mellitus Male erectile disorder of organic origin Nonalcoholic fatty liver disease Numerous moles Obesity (BMI 35.0-39.9 without comorbidity) Surgical History (Updated 08/09/24 @ 10:00 by Dina Bellamy RN) History of cardiac cath S/P angioplasty with stent Stent x 2 History of colonoscopy (~2009) S/P tonsillectomy S/P anal fissurectomy Family History (Updated 08/09/24 @ 10:04 by Dina Bellamy RN) Mother , 81yo Stroke Diabetes Crohn's disease Smoker Father , 70yo Stroke Hypertension Prostate cancer Lung cancer Brother Arthritis Hypertension Sister Twin Pts twin sister Daughter No problems noted. Uncle Prostate cancer Paternal uncle Grandfather (Maternal) Prostate cancer Other No pertinent family history Social History (Updated 08/09/24 @ 10:06 by Dina Bellamy RN) Smoking Status: Never smoker Tobacco Type: Cigarettes Do You Dip or Chew Tobacco: No (Quit at 33yo); Hx Alcohol Use: No Hx Substance Use: No Preferred Language: Czech Communication Ability: Effective Visual Impairment: Limited Hearing Ability: Normal Web Content Producer Required: No Beliefs That Will Affect Care: None marital status: Unknown Current Living Situation: Spouse current occupational status: retired How many Children do You have: 2 Feels Safe at Home: Yes Diet: regular caffeine: Yes (2 cups/day) during the past year weight has: remained stable Assistive Devices: Glasses Review of Systems Review of Systems: Constitutional- no fever; no weight loss Eyes- no acute visual changes ENT- no sinus drainage; no pharyngitis Pulmonary- no cough, no wheezing, no shortness of breath Cardiac- no chest pain, no palpitations, no orthopnea, no dependent edema GI- no nausea, no vomiting, no diarrhea, no melena, no hematochezia - no dysuria, no hematuria Musculoskeletal- no arthralgias, no myalgias Derm- no rashes, no new skin lesions, no changing skin lesions Hematologic- no unusual bruising, no unusual bleeding Lymphatics- no adenopathy Endocrine- no polyuria or polydipsia; no heat or cold intolerance Neuro- no headaches, as above Psych- no anxiety, no depression Physical Exam Physical Exam: General- adult elderly male seen at bedside. His is present. Head- atraumatic Eyes- PERRL, EOMI, anicteric ENT- oropharynx clear Neck- supple, no JVD, no adenopathy, no thyromegaly; carotids +2/2, no bruits appreciated Lungs- clear to auscultation and percussion Heart- regular rhythm; no murmur, no gallop, no rub appreciated Abdomen- normal bowel sounds, soft, nontender, no masses or hepatosplenomegaly Extremities- no pretibial edema, no calf tenderness; peripheral pulses intact Neuro- alert, oriented x 3; PERRL, EOMI; no facial palsy; no dysarthria; motor 5/5 bilaterally; no cogwheel rigidity; patellar DTRs +2/2; toes downgoing bilaterally; finger to nose intact bilaterally Skin- warm & dry Results & Data Results & Data Vital Signs (Past 12 Hours) Vital Signs Temp Pulse Pulse Resp BP BP Pulse Ox 03/14/25 19:32 90 19 173/92 H 93 03/14/25 19:32 90 18 173/92 H 96 03/14/25 17:37 36.6 C 106 H 16 160/96 H 97 O2 Del Method 03/14/25 19:32 Room Air 03/14/25 19:32 Room Air 03/14/25 17:37 Room Air Diagnostic Findings Laboratory Results WBC 6.42 K/ul (4.8-10.8) 03/14/25 17:58 RBC 5.12 M/uL (4.70-6.10) 03/14/25 17:58 Hgb 15.3 g/dl (14.0-18.0) 03/14/25 17:58 Hct 41.9 % (42.0-52.0) L 03/14/25 17:58 MCV 81.8 fL (80.0-100.0) 03/14/25 17:58 MCH 29.9 pg (25.0-34.0) 03/14/25 17:58 MCHC 36.5 g/dL (32.0-36.0) H 03/14/25 17:58 RDW Std Deviation 40.0 fL (36.4-46.3) 03/14/25 17:58 RDW Coeff of Nena 13.6 % (11.5-14.5) 03/14/25 17:58 Plt Count 193 K/uL (130-400) 03/14/25 17:58 MPV 9.2 fL (9.4-12.4) L 03/14/25 17:58 PT 11.2 Seconds (9.0-12.0) 03/14/25 17:58 INR 1.0 (0.9-1.1) 03/14/25 17:58 APTT 25 Seconds (21-31) 03/14/25 17:58 PTT Ratio 0.9 03/14/25 17:58 Sodium 139 mmol/L (136-145) 03/14/25 17:58 Potassium 4.2 mmol/L (3.5-5.1) 03/14/25 17:58 Chloride 105 mmol/L (98-107) 03/14/25 17:58 Carbon Dioxide 23 mmol/L (21-32) 03/14/25 17:58 Anion Gap 11 (3-11) 03/14/25 17:58 BUN 18 mg/dl (6-23) 03/14/25 17:58 Creatinine 0.95 mg/dl (0.6-1.4) 03/14/25 17:58 Est Cr Clr Drug Dosing 98.9 ml/min 03/14/25 17:58 eGFR 88.28 03/14/25 17:58 BUN/Creatinine Ratio 18.9 (10-20) 03/14/25 17:58 Glucose 93 mg/dl (70-99(Fasting)) 03/14/25 17:58 Calcium 9.8 mg/dl (8.6-10.3) 03/14/25 17:58 Magnesium 1.8 mg/dl (1.7-2.4) 03/14/25 17:58 Total Bilirubin 1.2 mg/dl (0.2-1.0) H 03/14/25 17:58 AST 58 U/L (13-39) H 03/14/25 17:58 ALT 52 U/L (7-52) 03/14/25 17:58 Alkaline Phosphatase 55 U/L (34-104) 03/14/25 17:58 Total Protein 7.5 gm/dl (6.0-8.3) 03/14/25 17:58 Albumin 4.6 gm/dl (3.4-5.0) 03/14/25 17:58 Globulin 2.9 gm/dl (2.5-4.0) 03/14/25 17:58 Albumin/Globulin Ratio 1.6 (0.9-2) 03/14/25 17:58 Impressions Head CTA 03/14/25 18:55 HISTORY: Stroke TECHNIQUE: CT angiography of the head and the neck was performed. Noncontrast CT head was obtained coronal and sagittal reformats were created. IV CONTRAST: 100 mL of OMNIPAQUE 300 COMPARISON: None FINDINGS: CTA HEAD: Stenotic/occlusive disease: Moderate stenosis of the left ICA paraclinoid segment secondary to atherosclerosis. Aneurysm: None Vascular malformation: None NONVASCULAR: Brain parenchyma: Chronic white management changes. Extra-axial space: Unremarkable Ventricular system: Unremarkable Additional comments: None CTA NECK: Right carotid: No hemodynamically significant stenosis. Left carotid: No hemodynamically significant stenosis. Vertebrobasilar system: No hemodynamically significant stenosis. Aortic arch and subclavian arteries: No hemodynamically significant stenosis. Nonvascular structures: Unremarkable. Stenosis ranges are derived using NASCET criteria. IMPRESSION: No acute injury or process identified. No large vessel occlusion Moderate stenosis of the left ICA paraclinoid segment secondary to atherosclerosis. Electronically signed by Farshad Rojas 03-14-2025 8:41 PM Neck CTA 03/14/25 18:55 HISTORY: Stroke TECHNIQUE: CT angiography of the head and the neck was performed. Noncontrast CT head was obtained coronal and sagittal reformats were created. IV CONTRAST: 100 mL of OMNIPAQUE 300 COMPARISON: None FINDINGS: CTA HEAD: Stenotic/occlusive disease: Moderate stenosis of the left ICA paraclinoid segment secondary to atherosclerosis. Aneurysm: None Vascular malformation: None NONVASCULAR: Brain parenchyma: Chronic white management changes. Extra-axial space: Unremarkable Ventricular system: Unremarkable Additional comments: None CTA NECK: Right carotid: No hemodynamically significant stenosis. Left carotid: No hemodynamically significant stenosis. Vertebrobasilar system: No hemodynamically significant stenosis. Aortic arch and subclavian arteries: No hemodynamically significant stenosis. Nonvascular structures: Unremarkable. Stenosis ranges are derived using NASCET criteria.
[2025-03-14] MEDS: CLOPIDOGREL BISULFATE 300 MG TAB PO STA (21:41)
[2025-03-14] MEDS ORDERED: ACETAMINOPHEN 325 MG TAB PO PRN (23:45)
[2025-03-14] MEDS ORDERED: POLYETHYLENE (MIRALAX) 17 GM PACK PO PRN (23:45)
[2025-03-14] MEDS ORDERED: BLOOD GLUCOSE SENSOR SCH (23:45)
[2025-03-14] MEDS ORDERED: MELATONIN 3 MG TAB PO PRN (23:45)
[2025-03-14] MEDS ORDERED: ALUMINUM/MAGNESIUM SUSP 30 ML UDC PO PRN (23:45)
[2025-03-14] MEDS ORDERED: NITROGLYCERIN SL 0.4 MG/TAB TAB SL PRN (23:45)
[2025-03-14] MEDS ORDERED: ONDANSETRON INJ 2 MG/ML 2 ML VIAL IV PRN (23:45)
[2025-03-15 06:10] LABS: Hematocrit (blood only) 40.4 % (42.0-52.0); Hemoglobin 14.4 g/dl (14.0-18.0); Mean Corpuscular Hemoglobin 29.1 pg (25.0-34.0); Mean Corpuscular Volume 81.6 fL (80.0-100.0); Platelet Count 158 K/uL (130-400); RDW Standard Deviation 40.0 fL (36.4-46.3); Red Blood Count 4.95 M/uL (4.70-6.10); White Blood Count 5.26 K/ul (4.8-10.8)
[2025-03-15] MEDS: LEVOTHYROXINE SODIUM 88 MCG TABLET PO SCH (06:25)
[2025-03-15 06:30] LABS: Anion Gap 10.0 (3-11); Blood Urea Nitrogen 14.0 mg/dl (6-23); Calcium 9.2 mg/dl (8.6-10.3); Carbon Dioxide 25.0 mmol/L (21-32); Chloride 104.0 mmol/L (98-107); Creatinine Clr Calc Pharmacy 108.7 ml/min; Glucose 83.0 mg/dl (70-99(Fasting)); Magnesium 1.8 mg/dl (1.7-2.4); Potassium 4.0 mmol/L (3.5-5.1); Sodium 139.0 mmol/L (136-145)
[2025-03-15] MEDS: ENOXAPARIN INJ 40 MG/0.4 ML SYR SQ SCH (08:42)
[2025-03-15] MEDS: MULTIVITAMIN TAB PO SCH (08:43)
[2025-03-15] MEDS: EZETIMIBE 10 MG TAB PO SCH (08:43)
[2025-03-15] MEDS: LOSARTAN POTASSIUM 50 MG TAB PO SCH (08:43)
[2025-03-15] MEDS: hydroCHLOROthiazide 25 MG TAB PO SCH (08:43)
[2025-03-15] MEDS: CLOPIDOGREL BISULFATE 75 MG TAB PO SCH (08:43)
[2025-03-15] MEDS: METOPROLOL SUCC 25MG EXT REL TAB PO SCH (08:43)
[2025-03-15] MEDS: PRAVASTATIN SOD 40 MG TAB PO SCH (08:43)
[2025-03-15] MEDS: VERAPAMIL HCL 120 MG TABCR PO SCH (08:43)
[2025-03-15] MEDS: INSULIN ASPART PER UNIT CHARGE SQ SCH (08:44)
[2025-03-15 08:53] VITALS: RESP 18
--- NOTE | 2025-03-15 11:10 | Hospitalist Progress Note ---
Date of Service March 15, 2025 Assessment & Plan (1) Stroke-like symptom: Plan: Pt with NIH ZERO today Head and neck CTA with moderate stenosis L ICA ECHO done with pending results Neurology consult placed PT/OT/ST consults placed Continue DAPT with Plavix and ASA Continue pravastatin; on high dose already MRI ordered; confirmed KATIA. Reviewed his [email or web address] card (2) Type 2 diabetes mellitus with complications: Plan: Insulin dependent at home ACHS SSI while inpatient A1c 6.7 this morning Uses Dexcom at home Heart healthy diet (3) Subclinical hypothyroidism: Plan: Takes levothyroxine; continue Last TSH was done on 02/05/2025 and was normal at 2.76 (4) HTN (hypertension): Plan: takes verapamil, hydrochlorothiazide, metoprolol; continue Takes losartan; continue BP slightly elevated while here; however permissive hypertension until MRI is completed (5) Hyperlipidemia: Plan: takes pravastatin; continue (6) CAD (coronary artery disease): Plan: Continue aspirin Plan Patient is a full code VTE prophylaxis: Lovenox subcu Admission and Anticipated Discharge Date Admission Date: March 14, 2025 Subjective Pt sitting in his hospital bed; his at his bedside. No complaints from overnight. His feels he has returned to baseline functional status. Pt denies Kell[place], dizziness, SOB, chest pain, N/V/D, abdominal pain or tenderness. Denies vision or auditory changes, unilateral weakness, facial droop or aphagia. Please see A/P for further details Review of Systems Review of Systems: Neuro: (-) Falls, trauma, slurred speech HEENT: (-) KE[place]OGG, dizziness, dysphagia, visual or auditory changes CV: (-) CP, palpitations, swelling Resp: (-) SOB GI: (-) appetite changes, N/V/D, bowel changes : (-) urinary changes Skin: (-) rashes Psych: (-) anxiety, depression Physical Exam Physical Exam: Neuro: AAOx4, PERRLA, no aphagia, memory changes, CNII-XII grossly intact . NIH 0 HEENT: head normocephalic, moist mucus membranes CV: S1/S2, (-) M/G/R, (-) edema, cap refill < 3 seconds Resp: Lungs CTA in all mccollum. On RA GI: Abdomen S/NT/ND, Ax4 bowel sounds, (-) CVA tenderness Musculoskeletal: 5/5 B/L UE strength, 5/5 B/L LE strength. No gait disturbance; has been ambulating around his room Skin: (-) rashes , (-) erythema. Psych: euthymic mood Results & Data Results & Data Vital Signs (Past 12 Hours) Vital Signs Temp Pulse Pulse Resp BP Pulse Ox O2 Del Method 03/15/25 08:52 99 H 18 178/96 H 95 Room Air 03/15/25 04:54 36.4 C L 87 16 160/87 H 98 Room Air 03/14/25 23:45 99 H 03/14/25 23:45 36.4 C L 95 H 18 152/87 H 96 Room Air 03/14/25 23:30 Room Air 03/14/25 23:30 36.4 C L 95 H 18 152/87 H 96 Room Air Laboratory Results Short CBC 03/14/25 03/15/25 Range/Units 17:58 05:48 WBC 6.42 5.26 (4.8-10.8) K/ul Hgb 15.3 14.4 (14.0-18.0) g/dl Hct 41.9 L 40.4 L (42.0-52.0) % Plt Count 193 158 (130-400) K/uL BMP 03/14/25 03/15/25 17:58 05:48 Sodium 139 139 Potassium 4.2 4.0 Chloride 105 104 Carbon Dioxide 23 25 BUN 18 14 Creatinine 0.95 0.86 Glucose 93 83 Calcium 9.8 9.2 Liver Function 03/14/25 Range/Units 17:58 Total Bilirubin 1.2 H (0.2-1.0) mg/dl AST 58 H (13-39) U/L ALT 52 (7-52) U/L Alkaline Phosphatase 55 (34-104) U/L Albumin 4.6 (3.4-5.0) gm/dl
--- NOTE | 2025-03-15 11:48 | Electrocardiogram Report ---
Test Reason : Blood Pressure : */* mmHG Vent. Rate : 101 BPM Atrial Rate : 101 BPM P-R Int : 158 ms QRS Dur : 102 ms QT Int : 340 ms P-R-T Axes : 43 39 -5 degrees QTcB Int : 440 ms Sinus tachycardia Nonspecific T wave abnormality Abnormal ECG When compared with ECG of 26-Jan-2019 06:33, T wave inversion now evident in Inferior leads Nonspecific T wave abnormality now evident in Anterolateral leads Confirmed by Allan Burns ([id number]) on 03/15/2025 11:47:59 AM Referred By: REFERRED SELF Confirmed By: Allan Burns
[2025-03-15 12:35] VITALS: BP 143/88; TEMP 97.7; O2SAT 96
--- NOTE | 2025-03-15 12:39 | Neurology Consultation ---
Date of Consultation March 15, 2025 Assessment & Plan (1) Stroke-like symptoms: Recommend admission for continued stroke work up to include the following: MRI brain without contrast Echocardiogram as part of complete stroke workup Continue frequent neurological assessments Obtain stat CT brain without contrast for any acute neurological decline Continue to monitor/control blood pressure & blood glucose Continue to monitor telemetry closely Recommend ZioPatch at DC if no evidence of arrhythmia during inpatient monitoring Continue to monitor renal and hepatic function, keep euvolemic Metabolic workup should include hgbA1c, fasting lipids Recommend DAPT for at least 3 weeks, then daily ASA as monotherapy Recommend high dose statin therapy indefinitely if tolerated Ok from neurology perspective for VTE prophylaxis PT/OT/SLT to eval and treat Recommend eval for LOLA and consider outpatient polysomnography Telehealth Consultation Telehealth Information Telehealth Information: I performed this visit using a real-time telehealth connection between my location and the patients location ([facility]). After connecting through interactive tele-video, patient was identified by name and date of and/or wristband check.Patient (or authorized healthcare asset protection representative) was informed that this was a telemedicine visit and it was being conducted confidentially over secure lines. My office door was closed and no one else was present in the room with me.Patient (or authorized healthcare asset protection representative) provided consent to proceed with the visit, expressed an understanding of privacy and security of the telemedicine visit, and gave permission to have a hospital asset protection representative in the room in order to assist with the visit and to conduct portions of the visit, as needed. I informed the patient (or authorized healthcare asset protection representative) that I reviewed their record and presented the opportunity for them to ask any questions regarding the visit today. The patient agreed to participate. History of Present Illness Reason for Consultation: Stroke Like Symptoms Requesting Physician: Dr. Valderrama Attending Physician: Jason Valderrama MD History of Present Illness 64yo male with significant past medical hx of HTN, DM, hyperlipidemia,CAD with stenting, prostate CA presented to ER hypertensive with reported right facial asymmetry dysarthria onset days prior to presentation. Seen by stroke teleneurology while in ER. He has undergone emergent stroke imaging including CT brain without contrast, personally reviewed today, revealing no overt evidence of hemorrhage. CT angiographic studies of head and neck, also personally reviewed today, reveal no overt evidence of large vessel occlusion or significant/flow limiting stenosis; noting left ICA stenosis. I have performed televideo consultation. He is alert & oriented; able to answer all questions appropriately, name objects on televideo monitor, repeat phrases and perform complex/embedded commands without deficit. Neurological exam is non lateralizing/nonfocal in terms of motor strength and coordination. Allergies Allergy/AdvReac Type Severity Reaction Status Date / Time codeine Allergy Intermediate Itchiness Verified 03/14/25 21:59 Penicillins Allergy Intermediate Hives Verified 03/14/25 21:59 simvastatin AdvReac Severe SEVERE Verified 03/14/25 21:59 WEAKNESS IN LEG MUSCLES Home Medications Medication Instructions Recorded Confirmed Type aspirin 81 mg tablet,delayed 81 mg PO DAILY 12/24/18 03/14/25 History release multivitamin 1 tab PO DAILY 12/24/18 03/14/25 History lancets 30 gauge (OneTouch Delica #25 ea 03/29/19 02/11/25 History Lancets) pen needle, diabetic 32 gauge x #10 ea 03/29/19 02/11/25 History 5/32" (BD Lydia 2nd Gen Pen Needle) nitroglycerin 0.4 mg sublingual 0.4 mg sublingual Q5M PRN chest 09/04/19 03/14/25 Rx tablet pain #1 btl FreeStyle João 3 Sensor #9 ea 07/08/23 02/11/25 Rx (blood-glucose sensor) OneTouch Ultra Test (blood sugar #100 ea 07/08/23 02/11/25 Rx diagnostic) ezetimibe 10 mg tablet 10 mg PO DAILY #90 tabs 07/28/23 03/14/25 Rx hydrochlorothiazide 25 mg tablet 25 mg PO DAILY #90 tabs 08/09/23 03/14/25 Rx losartan 100 mg tablet 100 mg PO DAILY #90 tabs 08/09/23 03/14/25 Rx metoprolol succinate 25 mg 12.5 mg (1/2 x 25 mg) PO DAILY #45 08/09/23 03/14/25 Rx tablet,extended release 24 hr tabs (Toprol XL) pravastatin 40 mg tablet 40 mg PO DAILY #90 tabs 08/09/23 03/14/25 Rx verapamil 120 mg tablet,extended 120 mg PO BID #180 tabs 08/09/23 03/14/25 Rx release levothyroxine 88 mcg tablet 88 mcg PO DAILY #90 tabs 03/26/24 03/14/25 Rx insulin aspart U-100 100 unit/mL 20 unit subcut TID 08/09/24 03/14/25 History (3 mL) subcutaneous pen (Novolog FlexPen U-100 Insulin aspart) insulin degludec 200 unit/mL (3 100 unit subcut QAM 08/09/24 03/14/25 History mL) subcutaneous pen (Tresiba FlexTouch U-200 insulin) ipratropium bromide 21 mcg (0.03 2 spray intranasal TID PRN Nasal 08/09/24 03/14/25 History %) nasal spray Congestion tamsulosin 0.4 mg capsule 0.4 mg PO DAILY #30 caps 10/08/24 03/14/25 Rx clonazepam 0.5 mg tablet 0.5 mg PO QPM 02/15/25 03/14/25 History metformin 500 mg tablet,extended 1,000 mg PO BID 03/14/25 03/14/25 History release 24 hr Patient History Medical History (Updated 03/14/25 @ 22:52 by Marshall Portillo DO) Insomnia Diverticulosis Rectal abscess In his 20s Hypothyroidism Diabetic nephropathy associated with type 2 diabetes mellitus Male erectile disorder of organic origin Nonalcoholic fatty liver disease Numerous moles Obesity (BMI 35.0-39.9 without comorbidity) Surgical History (Updated 08/09/24 @ 10:00 by Dina Bellamy RN) History of cardiac cath S/P angioplasty with stent Stent x 2 History of colonoscopy (~2009) S/P tonsillectomy S/P anal fissurectomy Family History (Updated 08/09/24 @ 10:04 by Dina Bellamy RN) Mother , 81yo Stroke Diabetes Crohn's disease Smoker Father , 70yo Stroke Hypertension Prostate cancer Lung cancer Brother Arthritis Hypertension Sister Twin Pts twin sister Daughter No problems noted. Uncle Prostate cancer Paternal uncle Grandfather (Maternal) Prostate cancer Other No pertinent family history Social History (Updated 08/09/24 @ 10:06 by Dina Bellamy RN) Smoking Status: Never smoker Tobacco Type: Cigarettes Do You Dip or Chew Tobacco: No (Quit at 33yo); Hx Alcohol Use: No Hx Substance Use: No Preferred Language: Romanian Communication Ability: Effective Visual Impairment: Limited Hearing Ability: Normal Hoister Required: No Beliefs That Will Affect Care: None marital status: Unknown Current Living Situation: Spouse current occupational status: retired How many Children do You have: 2 Other Information That Helps Us Care for You: No Feels Safe at Home: Yes Safety Concerns: Feels Safe At This Time Diet: regular caffeine: Yes (2 cups/day) during the past year weight has: remained stable Assistive Devices: Glasses Physical Exam Neurological Examination: Mental Status: Awake and alert. Oriented to person, place, and time. Fluency naming repetition and comprehension appear grossly intact. Affect remains appropriate. CN testing: I: Deferred II: Reports no changes in visual acuity III/IV/: No evidence of gaze preference, hippus, nystagmus or roving eye movements V: Facial sensation reportedly grossly intact to light touch bilaterally VII: Facial movements appear without evidence of asymmetry VIII: Hearing appears grossly intact to loud voice bilaterally IX/X: Palate is unable to be accurately visualized XI: Shoulder shrug appears symmetric/ grossly intact bilaterally XII: Tongue protrudes midline without evidence of biting Motor exam: Strength appears grossly intact in all extremities Tone: Unable to accurately assess via telemedicine Sensory: Sensation is reportedly grossly intact throughout Coordination: No apparent evidence of dysmetria or dysdiadochokinesia Reflexes: Unable to accurately assess via telemedicine Gait: Deferred Results & Data Vital Signs (Past 12 Hours) Vital Signs Temp Pulse Pulse Resp BP Pulse Ox O2 Del Method 03/15/25 12:33 36.5 C 93 H 18 143/88 H 96 Room Air 03/15/25 08:52 99 H 18 178/96 H 95 Room Air 03/15/25 07:00 64 03/15/25 04:54 36.4 C L 87 16 160/87 H 98 Room Air Laboratory Results Abnormal lab results 03/14/25 03/15/25 03/15/25 Range/Units 17:58 05:48 08:25 Hct 41.9 L 40.4 L (42.0-52.0) % MCHC 36.5 H (32.0-36.0) g/dL MPV 9.2 L 9.2 L (9.4-12.4) fL POC Glucose 112 H (70-99) mg/dl Total Bilirubin 1.2 H (0.2-1.0) mg/dl AST 58 H (13-39) U/L 03/15/25 Range/Units 11:58 Hct (42.0-52.0) % MCHC (32.0-36.0) g/dL MPV (9.4-12.4) fL POC Glucose 141 H (70-99) mg/dl Total Bilirubin (0.2-1.0) mg/dl AST (13-39) U/L Diagnostic Findings Head CTA 03/14/25 18:55 HISTORY: Stroke TECHNIQUE: CT angiography of the head and the neck was performed. Noncontrast CT head was obtained coronal and sagittal reformats were created. IV CONTRAST: 100 mL of OMNIPAQUE 300 COMPARISON: None FINDINGS: CTA HEAD: Stenotic/occlusive disease: Moderate stenosis of the left ICA paraclinoid segment secondary to atherosclerosis. Aneurysm: None Vascular malformation: None NONVASCULAR: Brain parenchyma: Chronic white management changes. Extra-axial space: Unremarkable Ventricular system: Unremarkable Additional comments: None CTA NECK: Right carotid: No hemodynamically significant stenosis. Left carotid: No hemodynamically significant stenosis. Vertebrobasilar system: No hemodynamically significant stenosis. Aortic arch and subclavian arteries: No hemodynamically significant stenosis. Nonvascular structures: Unremarkable. Stenosis ranges are derived using NASCET criteria. IMPRESSION: No acute injury or process identified. No large vessel occlusion Moderate stenosis of the left ICA paraclinoid segment secondary to atherosclerosis. Electronically signed by Farshad Rojas 03-14-2025 8:41 PM Neck CTA 03/14/25 18:55 HISTORY: Stroke TECHNIQUE: CT angiography of the head and the neck was performed. Noncontrast CT head was obtained coronal and sagittal reformats were created. IV CONTRAST: 100 mL of OMNIPAQUE 300 COMPARISON: None FINDINGS: CTA HEAD: Stenotic/occlusive disease: Moderate stenosis of the left ICA paraclinoid segment secondary to atherosclerosis. Aneurysm: None Vascular malformation: None NONVASCULAR: Brain parenchyma: Chronic white management changes. Extra-axial space: Unremarkable Ventricular system: Unremarkable Additional comments: None CTA NECK: Right carotid: No hemodynamically significant stenosis. Left carotid: No hemodynamically significant stenosis. Vertebrobasilar system: No hemodynamically significant stenosis. Aortic arch and subclavian arteries: No hemodynamically significant stenosis. Nonvascular structures: Unremarkable. Stenosis ranges are derived using NASCET criteria. IMPRESSION: No acute injury or process identified. No large vessel occlusion Moderate stenosis of the left ICA paraclinoid segment secondary to atherosclerosis. Electronically signed by Farshad Rojas 03-14-2025 8:41 PM Medications Administered Home Medications Medication Instructions Recorded Confirmed Last Taken aspirin 81 mg tablet,delayed 81 mg PO DAILY 12/24/18 03/14/25 03/14/25 release multivitamin 1 tab PO DAILY 12/24/18 03/14/25 03/14/25 lancets 30 gauge (OneTouch Delica #25 ea 03/29/19 02/11/25 Unknown Lancets) pen needle, diabetic 32 gauge x #10 ea 03/29/19 02/11/25 Unknown 32" (BD Lydia 2nd Gen Pen Needle) nitroglycerin 0.4 mg sublingual 0.4 mg sublingual Q5M PRN chest 09/04/19 03/14/25 Unknown tablet pain #1 btl FreeStyle João 3 Sensor #9 ea 07/08/23 02/11/25 Unknown (blood-glucose sensor) OneTouch Ultra Test (blood sugar #100 ea 07/08/23 02/11/25 Unknown diagnostic) ezetimibe 10 mg tablet 10 mg PO DAILY #90 tabs 07/28/23 03/14/25 03/14/25 hydrochlorothiazide 25 mg tablet 25 mg PO DAILY #90 tabs 08/09/23 03/14/25 03/14/25 losartan 100 mg tablet 100 mg PO DAILY #90 tabs 08/09/23 03/14/25 03/14/25 metoprolol succinate 25 mg 12.5 mg (1/2 x 25 mg) PO DAILY #45 08/09/23 03/14/25 03/14/25 tablet,extended release 24 hr tabs (Toprol XL) pravastatin 40 mg tablet 40 mg PO DAILY #90 tabs 08/09/23 03/14/25 03/14/25 verapamil 120 mg tablet,extended 120 mg PO BID #180 tabs 08/09/23 03/14/25 03/14/25 08:00 release levothyroxine 88 mcg tablet 88 mcg PO DAILY #90 tabs 03/26/24 03/14/25 03/14/25 insulin aspart U-100 100 unit/mL 20 unit subcut TID 08/09/24 03/14/25 03/14/25 12:00 (3 mL) subcutaneous pen (Novolog FlexPen U-100 Insulin aspart) insulin degludec 200 unit/mL (3 100 unit subcut QAM 08/09/24 03/14/25 03/14/25 mL) subcutaneous pen (Tresiba FlexTouch U-200 insulin) ipratropium bromide 21 mcg (0.03 2 spray intranasal TID PRN Nasal 08/09/24 03/14/25 Unknown %) nasal spray Congestion tamsulosin 0.4 mg capsule 0.4 mg PO DAILY #30 caps 10/08/24 03/14/25 03/14/25 clonazepam 0.5 mg tablet 0.5 mg PO QPM 02/15/25 03/14/25 Unknown metformin 500 mg tablet,extended 1,000 mg PO BID 03/14/25 03/14/25 03/14/25 08:00 release 24 hr Active Medications Generic Name Dose Route Start Last Admin Trade Name Freq PRN Reason Stop Dose Admin Clopidogrel Bisulfate 75 mg 03/15/25 09:00 03/15/25 08:43 Clopidogrel Bisulfate 75 Mg Tab PO 04/14/25 08:59 75 mg QAM LONNY Administration Ezetimibe 10 mg 03/15/25 09:00 03/15/25 08:43 Ezetimibe 10 Mg Tab PO 04/14/25 08:59 10 mg DAILY LONNY Administration Enoxaparin Sodium 40 mg 03/15/25 08:00 03/15/25 08:42 Enoxaparin Inj 40 Mg/0.4 Ml Syr SQ 04/14/25 07:59 40 mg Q24H LONNY Administration Hydrochlorothiazide 25 mg 03/15/25 09:00 03/15/25 08:43 Hydrochlorothiazide 25 Mg Tab PO 04/14/25 08:59 25 mg DAILY LONNY Administration Insulin Aspart 0 units 03/15/25 07:30 03/15/25 08:44 Insulin Aspart Per Unit Charge SQ 04/14/25 07:29 8 units ACHS LONNY Administration Levothyroxine Sodium 88 mcg 03/15/25 06:30 03/15/25 06:25 Levothyroxine Sodium 88 Mcg Tablet PO 04/14/25 06:29 88 mcg DAILYBB LONNY Administration Losartan Potassium 100 mg 03/15/25 09:00 03/15/25 08:43 Losartan Potassium 50 Mg Tab PO 04/14/25 08:59 100 mg DAILY LONNY Administration Metoprolol Succinate 12.5 mg 03/15/25 09:00 03/15/25 08:43 Metoprolol Succ 25mg Ext Rel Tab PO 04/14/25 08:59 12.5 mg DAILY LONNY Administration Multivitamins 1 tab 03/15/25 09:00 03/15/25 08:43 Multivitamin Tab PO 04/14/25 08:59 1 tab DAILY LONNY Administration Pravastatin Sodium 40 mg 03/15/25 09:00 03/15/25 08:43 Pravastatin Sod 40 Mg Tab PO 04/14/25 08:59 40 mg DAILY LONNY Administration Verapamil HCl 120 mg 03/15/25 09:00 03/15/25 08:43 Verapamil Hcl 120 Mg Tabcr PO 04/14/25 08:59 120 mg BID LONNY Administration
[2025-03-15] MEDS: GADOBUTROL 65ML VIAL IV ONE (13:52)
--- NOTE | 2025-03-15 14:50 | Magnetic Resonance Report ---
MR brain wo/w con CLINICAL HISTORY: stroke r/o; does have h/o KATIA. has his card . History of prostate cancer. COMPARISON STUDY: CT scan yesterday FINDINGS: No restricted diffusion seen to suggest acute infarction. No mass effect, midline shift, or hydrocephalus. No intracranial hemorrhage seen. There is mild diffuse cerebral and cerebellar volume loss. There are a few small mucous retention cysts inferiorly in the maxillary sinuses. There is flu id in multiple right mastoid air cells. There are a few scattered small foci of increased FLAIR signa l intensity in the periventricular white matter which is nonspecific, but usually represents chronic small vessel ischemic change. No abnormal enhancement seen at the brain. IMPRESSION: 1. No evidence of acute infarction. 2. No abnormal enhancement seen. 3. Otherwise as described. ACT 112: Negative or not required by law. Electronically signed by: Dg Gagnon M.D. 03/15/2025 2:47 PM
[2025-03-15 15:55] VITALS: PULSE 93
--- NOTE | 2025-03-15 16:06 | Discharge Summary ---
Date of Service March 15, 2025 Admission HPI Per Admitting Provider Reese Bailey is a 64-year-old male with a past medical history of type II diabetes mellitus, hypertension, hyperlipidemia, prostate cancer with completion of recent treatment, hypothyroidism, hyperlipidemia, CAD with stent x 2 and CVA who presents to the ER today for strokelike symptoms. Patient has had a slight right-sided facial droop and some garbled speech intermittently since Tuesday 2 days ago. Patient's spouse is present at bedside provides additional history and notes that she has noticed that the symptoms were worse today. No other exacerbating or remitting factors. Patient denies numbness or weakness in the right upper extremity or right lower extremity. No visual field loss. Stroke alert was called. CTA and CT scans of the brain were noted. Teleneurology was consulted. They recommended admission with continuation of aspirin and addition of clopidogrel. Patient states he was on clopidogrel after his stents. Unclear if MRI can be done with stents. Patient's symptoms seem to be largely resolved at the time of my examination. No known tick bites. A Lyme test has been ordered Admission Exam Per Admitting Provider General- adult elderly male seen at bedside. His is present. Head- atraumatic Eyes- PERRL, EOMI, anicteric ENT- oropharynx clear Neck- supple, no JVD, no adenopathy, no thyromegaly; carotids +2/2, no bruits appreciated Lungs- clear to auscultation and percussion Heart- regular rhythm; no murmur, no gallop, no rub appreciated Abdomen- normal bowel sounds, soft, nontender, no masses or hepatosplenomegaly Extremities- no pretibial edema, no calf tenderness; peripheral pulses intact Neuro- alert, oriented x 3; PERRL, EOMI; no facial palsy; no dysarthria; motor 5/5 bilaterally; no cogwheel rigidity; patellar DTRs +2/2; toes downgoing bilaterally; finger to nose intact bilaterally Skin- warm & dry Principal Diagnosis stroke like symptoms Discharge Exam Neuro: AAOx4, PERRLA, no aphagia, memory changes, CNII-XII grossly intact HEENT: head normocephalic, moist mucus membranes CV: S1/S2, (-) M/G/R, (-) edema, cap refill < 3 seconds Resp: Lungs CTA in all mccollum. On RA GI: Abdomen S/NT/ND, Ax4 bowel sounds, (-) CVA tenderness Musculoskeletal: 5/5 B/L UE strength, 5/5 B/L LE strength. No gait disturbance Skin: (-) rashes , (-) erythema. Psych: euthymic mood Discharge Data Allergies Allergy/AdvReac Type Severity Reaction Status Date / Time codeine Allergy Intermediate Itchiness Verified 03/14/25 21:59 Penicillins Allergy Intermediate Hives Verified 03/14/25 21:59 simvastatin AdvReac Severe SEVERE Verified 03/14/25 21:59 WEAKNESS IN LEG MUSCLES Consultations 03/14/25 20:40 ED Decision to Admit Stat 03/15/25 07:59 Consult Neurology Routine Ordered Studies 03/14/25 18:55 CT angio head wo/w Stat CT angio neck with con Stat CTA HEAD: Stenotic/occlusive disease: Moderate stenosis of the left ICA paraclinoid segment secondary to atherosclerosis. Aneurysm: None Vascular malformation: None NONVASCULAR: Brain parenchyma: Chronic white management changes. Extra-axial space: Unremarkable Ventricular system: Unremarkable Additional comments: None CTA NECK: Right carotid: No hemodynamically significant stenosis. Left carotid: No hemodynamically significant stenosis. Vertebrobasilar system: No hemodynamically significant stenosis. Aortic arch and subclavian arteries: No hemodynamically significant stenosis. Nonvascular structures: Unremarkable. Stenosis ranges are derived using NASCET criteria. IMPRESSION: No acute injury or process identified. No large vessel occlusion Moderate stenosis of the left ICA paraclinoid segment secondary to atherosclerosis. 03/15/25 11:03 MRI Brain [MR brain wo/w con] FINDINGS: No restricted diffusion seen to suggest acute infarction. No mass effect, midline shift, or hydrocephalus. No intracranial hemorrhage seen. There is mild diffuse cerebral and cerebellar volume loss. There are a few small mucous retention cysts inferiorly in the maxillary sinuses. There is fluid in multiple right mastoid air cells. There are a few scattered small foci of increased FLAIR signal intensity in the periventricular white matter which is nonspecific, but usually represents chronic small vessel ischemic change. No abnormal enhancement seen at the brain. IMPRESSION: 1. No evidence of acute infarction. 2. No abnormal enhancement seen. 3. Otherwise as described. Hospital Course (1) Stroke-like symptoms: (2) HTN (hypertension): (3) Hyperlipidemia: (4) CAD (coronary artery disease): Plan Mr. Bailey presented to the [facility] with stroke like symptoms that included facial droop that has occurred for two days. He has a PMH of hypertension, DM., prostate cancer, CAD with KATIA x1 that was placed in 2019. A head and neck CT angio was performed in the emergency room without evidence of acute stroke, however, moderate stenosis of the L ICA was identified on your head/neck CTA.. An echocardiogram was obtained and unremarkable. A brain MRI was obtained today without evidence of acute infarction. No leukocytosis was noted, labs ultimately unremarkable; total bilirubin 1.2. In the ED he was loaded with Plavix and ASA. He was seen by telehealth neurology in the ED and imaging was obtained: 1. Head/Neck CTA: No acute injury or process identified. No large vessel occlusion. Moderate stenosis of the left ICA paraclinoid segment secondary to atherosclerosis. 2. Brain MRI: No acute injury or process identified. No large vessel occlusion. Moderate stenosis of the left ICA paraclinoid segment secondary to atherosclerosis. 3. Echocardiogram: 55 to 60%, mild concentric LVH noted. Mild mitral regurgitation noted. His neurological exam is non lateralizing/nonfocal in terms of motor strength and coordination. It was recommended that he continue taking Plavix 75 mg daily x 21 days and Aspirin 81 mg daily x21 days. The following was recommended for him for follow up. 1. It is recommended that you follow up with your primary care provider, Dr. Jarquin's office, they will call you to schedule your follow-up appointment. 2. It is recommended that you undergo an outpatient sleep study which will be arranged by your PCP 3. It recommended that you undergo a Zio patch study which will be arranged by your PCP. 4. Neurology follow-up is recommended and has been arranged with Dr. Santacruz on 04/10 @ 1000 as outlined above. Total Time Total Time Spent Total Time Spent (In Minutes): I spent a total of 48 minutes coordinating, documenting, and providing care for this patient excluding time spent inthe performance of separately billed services or time spent by another provider/QHP. Discharge Plan Discharge Items Patient Disposition: Home - Self-Care Reason For Visit: STROKE SYMPTOMS Discharge Diagnosis: Stroke like symptoms Condition on Discharge: Fair Activity: Resume your previous activity Exercise/Sports: Rest today and Gradually increase as tolerated Driving/Machine Use: No limitations Weightbearing: Full weightbearing Non-emergency contact: Primary Care Provider and Neurologist Call non-emergency contact if: your symptoms worsen and your temperature is above 101 Follow-up/Referrals: Santacruz Laurence A, M.D. [Outside Practitioners] - (Date & Time 04/10/2025 10:00 AM Provider: Yessica Santacruz MD Neurology [facility] ) Sangeeta Johnson DO [Primary Care Provider] - (The office will call you with a follow up appointment. ) Diet: Heart Healthy Addtl Attending Provider Instructions: Mr. Bailey, You presented to the [facility] with stroke like symptoms that included facial droop. You reported that you have a past medical history of hypertension, DM. CAD with KATIA x1 that was placed in 2018. A head and neck CT angio was performed in the emergency room without evidence of acute stroke, however, moderate stenosis of the L ICA was identified on your head/neck CTA.. An echocardiogram (ultrasound of your heart) was obtained and unremarkable. A brain MRI was obtained today without evidence of acute infarction. Your blood work and obtained and unremarkable. You recently had a lipid panel performed as an outpatient on February 05 and are already taking a Given the resolution of your symptoms and unremarkable imaging studies, we feel comfortable with your discharge from the hospital and following up with your PCP and specialist as outlined below. MEDICATION CHANGES: 1. Continue taking Plavix 75 mg daily x 21 days 2. Continue taking Aspirin 81 mg daily x21 days The above medications are recommended to take in combination for a total of three weeks for dual antiplatelet treatment. SUMMARY OF TEST RESULTS: 1. Head/Neck CTA: No acute injury or process identified. No large vessel occlusion. Moderate stenosis of the left ICA paraclinoid segment secondary to atherosclerosis. 2. Brain MRI: No acute injury or process identified. No large vessel occlusion. Moderate stenosis of the left ICA paraclinoid segment secondary to atherosclerosis. 3. Echocardiogram: 55 to 60%, mild concentric LVH noted. Mild mitral regurgitation noted. RECOMMENDATIONS FOR FOLLOW-UP: 1. It is recommended that you follow up with your primary care provider, Dr. Jarquin's office, they will call you to schedule your follow-up appointment. 2. It is recommended that you undergo an outpatient sleep study which will be arranged by your PCP 3. It recommended that you undergo a Zio patch study which will be arranged by your PCP. 4. Neurology follow-up is recommended and has been arranged with Dr. Santacruz on 04/10 @ 1000 as outlined above. OTHER INSTRUCTIONS: Seek medical attention if you have: * temperature above 101 * chest pain or trouble breathing * abdominal pain, nausea, vomiting * diarrhea, dark stools or bloody stools * any unanswered questions or concerns Call 911 if symptoms are severe. Please take good care of yourself. It has been a pleasure taking care of you. Please take care of yourself. If you have any questions regarding your recent hospitalization please contact [facility] and request [facility] @ [phone]. Pending Studies at Discharge: No Stand-Alone Forms: My [facility], Smoking Cessation Medications and DC Order Prescriptions: New aspirin 81 mg Tablet,Delayed Release (Dr/Ec) 81 mg PO QPM Qty: 30 0RF clopidogrel 75 mg tablet 75 mg PO DAILY Qty: 21 0RF Rx Instructions: please take daily starting on 03/16; for 21 days; completing on 03/06 unless otherwise directed by your PCP or neurology. Continued ipratropium bromide 21 mcg (0.03 %) spray,non-aerosol 2 spray intranasal TID PRN (Reason: Nasal Congestion) Rx Instructions: administer into each nostril Tresiba FlexTouch U-200 200 unit/mL (3 mL) insulin pen 100 unit subcut QAM insulin aspart U-100 [Novolog FlexPen U-100 Insulin] 100 unit/mL (3 mL) insulin pen 20 unit subcut TID clonazepam 0.5 mg tablet 0.5 mg PO QPM Patient Comments: slowly weaning ezetimibe 10 mg tablet 10 mg PO DAILY Qty: 90 3RF hydrochlorothiazide 25 mg tablet 25 mg PO DAILY Qty: 90 3RF losartan 100 mg tablet 100 mg PO DAILY Qty: 90 3RF metoprolol succinate [Toprol XL] 25 mg tablet extended release 24 hr 12.5 mg PO DAILY Qty: 45 3RF pravastatin 40 mg tablet 40 mg PO DAILY Qty: 90 3RF verapamil 120 mg tablet extended release 120 mg PO BID Qty: 180 2RF levothyroxine 88 mcg tablet 88 mcg PO DAILY Qty: 90 1RF Rx Instructions: Take one tablet daily 30-45 minutes before any other oral intake. tamsulosin 0.4 mg capsule 0.4 mg PO DAILY Qty: 30 5RF Patient Comments: not currently taking Rx Instructions: Take 1 pill after supper. nitroglycerin 0.4 mg tablet, sublingual 0.4 mg sublingual Q5M PRN (Reason: chest pain) Qty: 1 0RF Rx Instructions: max 3 tablets in 15 minutes multivitamin Tablet 1 tab PO DAILY metformin 500 mg tablet extended release 24 hr 1,000 mg PO BID Discontinued (DME) FreeStyle João 3 Sensor Device See Rx Instructions .ROUTE .MEDSUPPLY Qty: 9 3RF Rx Instructions: change sensor every 10 days (DME) OneTouch Ultra Test Strip See Rx Instructions .Route Qty: 100 3RF Rx Instructions: Use to test blood sugar once a day (DME) pen needle, diabetic [BD Lydia 2nd Gen Pen Needle] 32 gauge x 5/32" needle See Dose Instructions .ROUTE .MEDSUPPLY Qty: 10 Rx Instructions: As directed (DME) lancets [OneTouch Delica Lancets] 30 gauge misc See Dose Instructions .ROUTE .MEDSUPPLY Qty: 25 Rx Instructions: As directed aspirin 81 mg Tablet,Delayed Release (Dr/Ec) 81 mg PO DAILY Discharge Orders: Discharge Order (Routine); Ordered 03/15/25 Ordered By: Rosalie Domínguez/Other Patient Handouts: Managing Type 2 Diabetes Admission Data Admit Date/Time: 03/14/25 22:00 Attending Provider: Jason Valderrama Admit Provider: Ry Latif Primary Care Provider: Sangeeta Johnson Other Providers: Eliud Mustafa; Ry Latif; John Page Other Interventions: Discharge Summary Assessment (RN) Last Done: 03/15/25 15:53 Supervising Physician Co-Signing Physician Notes Attending addendum: The patient was seen and examined in telemetry unit in presence of the Was brought in with strokelike symptoms consisting of minimal right facial droop without any other associated neurological symptoms No obstructive findings of right facial droop this morning and neuroexamination was completely normal He denies any significant symptoms On examination Lying in bed without any distress Remains hemodynamically stable Systemic exam and neuro examinations were unremarkable His admission labs, imaging studies so far including MRI of the head reviewed Strokelike symptoms resolved without any evidence of acute stroke or any other significant findings on imaging studies Appreciate neurology input and recommendation Remains medically stable to be discharged Agree with assessment and plan as outlined above by Rosalie GREWAL and take the full responsibility of care in the hospital Dr Martine Valderrama
[2025-03-15] MEDS ORDERED: LANTUS PER UNIT CHARGE SQ SCH (21:00)
[2025-03-15] MEDS ORDERED: ASPIRIN 81 MG ECTAB PO SCH (21:00)
== END 2025-03-15 17:10 | disposition home or self-care (01) ==
LOC: ED 17:33 → 4W 17:33 → SUATTDRO 22:00 → 4W 22:50